=== PATIENT | male | born 1950 ===

== ENCOUNTER 2017-10-17 16:21 | Inpatient (IN) | payer OTHER, MEDICARE ==
[2017-10-17 16:21] VITALS: BMI 25.0
[~2017-10-17 16:21] MED LIST: Gadodiamide 287 mg/ml 20 ml IV ONE
--- NOTE | 2017-10-17 16:43 | C.PDOC ---
History Of Present Illness 66 y/o male presents to ED for complaints of worsening right hand infection that began 3 days ago. Patient states he was seen on 10/16 for same symptoms and was treated with 2 doses of Bactrim. Patient reports increasing redness and swelling of right hand prompted the ED visit. Denies fever or any other physical complaints. WORSENING R HAND INFXN X 3 DAYS. SEEN 10/16 FOR SAME SP BACTRIM X 2 DOSES. PS INCR REDNESS AND SWELLING. NO FEVER. EXAM MILD DIST NONTOXIC SKIN +CELLULITIS DORSAL R HAND ENTIRE TO WRIST; INTACT NONFLUCTUANT EXT R HAND SWELLING R DORSAL HAND, NONPITTING ATRAUM REMAINDER NEG Time Seen by Provider: 10/17/17 16:33 Chief Complaint (Nursing): Finger,Hand,&Wrist History Per: Patient History/Exam Limitations: no limitations Onset/Duration Of Symptoms: Days (3) Current Symptoms Are (Timing): Still Present Location Of Injury: Right: Hand Quality Of Symptoms: Swollen Recent travel outside of the [place]: No Past Medical History Reviewed: Historical Data, Nursing Documentation, Vital Signs Vital Signs: Last Vital Signs Temp 99.2 F 10/17/17 16:24 Pulse 80 10/17/17 16:24 Resp 20 10/17/17 16:24 BP 136/83 10/17/17 16:24 Pulse Ox 99 10/17/17 17:58 - Medical History PMH: Arthritis, Asthma, Colonic Polyps, Diabetes, HTN, Hypercholesterolemia Denies: Chronic Kidney Disease Surgical History: Endoscopy - [facility] Procedures ENDO EXCISION/DEST OF LESION OR TISSUE OF STOMACH (09/22/13) ENDO RECTUM POLYPECTOMY (08/14/13) ESOPHAGOGASTRODUODENOSCOPY [EGD] W/CLOSED BIOPSY (09/22/13) PHYSICAL THERAPY NEC (08/04/13) Family History: States: Unknown Family Hx - Social History Hx Tobacco Use: No Hx Alcohol Use: No Hx Substance Use: No - Immunization History Hx Tetanus Toxoid Vaccination: No Hx Influenza Vaccination: Yes Hx Pneumococcal Vaccination: No Review Of Systems Except As Marked, All Systems Reviewed And Found Negative. Skin: Positive for: Other (Redness and swelling of right hand (infection) ) Physical Exam - Physical Exam Appears: Non-toxic, In Acute Distress (Mild) Skin: Other (Positive cellulitis of dorsal of entire right hand extending to wrist, otherwise skin is intact and nonfluctuant. ) Head: Atraumatic, Normacephalic Eye(s): bilateral: Normal Inspection Chest: Symmetrical Cardiovascular: Rhythm Regular, Murmur Respiratory: Normal Breath Sounds, No Rales, No Rhonchi, No Wheezing, Other ( NARD) Extremity: Swelling (Right dorsal hand, nonpitting, atraumatic) Extremity: Bilateral: Atraumatic, Normal ROM Neurological/Psych: Oriented x3, Normal Speech ED Course And Treatment - Laboratory Results Result Diagrams: 10/17/17 17:06 10/17/17 17:06 ECG: Interpreted By Me ECG Rhythm: Sinus Tachycardia Rate From EC O2 Sat by Pulse Oximetry: 99 (RA) Pulse Ox Interpretation: Normal - Radiology CXR: Interpreted by Me CXR Interpretation: Yes: No Acute Disease - Other Rad R HAND X-Ray: Interpreted by Me (NEG) Progress - Re-Evaluation Re-evaluation Note: 10/17/17 16:41 d/w dr kenny will admit - Data Reviewed Data Reviewed: Lab, Diagnostic imaging, EKG, Old records Medical Decision Making Medical Decision Making: Plan: * IV fluids * Toradol * Vancomycin. * EKG * CXR * Blood culture Disposition Counseled Patient/Family Regarding: Studies Performed, Diagnosis - Disposition Disposition: HOSPITALIZED Disposition Time: 16:43 Condition: STABLE Forms: [facility] (Telugu) - POA Present On Arrival: Poor Glycemic Control - Clinical Impression Clinical Impression: Cellulitis of hand - Scribe Statement The provider has reviewed the documentation as recorded by the Scribe Geraldo Hightower All medical record entries made by the Scribe were at my direction and personally dictated by me. I have reviewed the chart and agree that the record accurately reflects my personal performance of the history, physical exam, medical decision making, and the department course for this patient. I have also personally directed, reviewed, and agree with the discharge instructions and disposition. Decision To Admit - Pt Status Changed To: Hospital Disposition Of: Observation - . Bed Request Type: Regular Admitting Physician: Moiz Kenny Patient Diagnosis: Cellulitis of hand
[2017-10-17] MEDS ORDERED: Vancomycin 1 GM 1 GM/250 ML BAG IV SCH (16:45)
[2017-10-17] MEDS: Sodium Chloride 0.9% 1,000 ML IV SCH ×2 (16:45→19:40)
[2017-10-17] MEDS ORDERED: Sodium Chloride 0.9% 1,000 ML ONE (16:51)
[2017-10-17 17:16] LABS: NEUT # 17.7 K/uL (1.8-7.0)
[2017-10-17 17:29] LABS: ALB/GLOB RATIO 1.2 (1.0-2.1); ALBUMIN 4.5 g/dL (3.5-5.0); ALT/SGPT 27 U/L (21-72); AST/SGOT 15 U/L (17-59); BASO # 0.1 K/uL (0.0-0.2); BASO % 0.4 % (0.0-2.0); BLOOD UREA NITROGEN 8 mg/dL (9-20); CALCIUM 9.5 mg/dl (8.6-10.4); GFR NON-AFRICAN AMERICAN > 60; HEMOGLOBIN 14.4 g/dL (12.0-18.0); LYMPH # 2.2 K/uL (1.0-4.3); LYMPH % 9.9 % (20.0-40.0); MEAN CELL VOLUME 90.5 fL (80.0-94.0); MEAN CORPUSCULAR HEMOGLOBIN 31.3 pg (27.0-31.0); MEAN CORPUSCULAR HGB CONC 34.6 g/dL (33.0-37.0); MEAN PLATELET VOLUME 7.1 fL (7.2-11.7); MONO # 2.4 K/uL (0.0-0.8); MONO % 10.5 % (0.0-10.0); NEUT % 79.2 % (50.0-75.0); NRBC % 0.1 % (0.0-2.0); PLATELET COUNT 287 K/uL (130-400); RBC 4.59 Mil/uL (4.40-5.90); RED CELL DISTRIBUTION WIDTH 13.2 % (11.5-14.5); WHITE BLOOD COUNT 22.4 K/uL (4.8-10.8)
--- NOTE | 2017-10-17 17:41 | RAD ---
Chest x-ray two views History: Medical clearance. Comparison: 05/11/2015 Findings: Mild venous congestion. Right hilar prominence. Heart size within normal limits. Degenerative changes in the spine. Prominent anterior osteophytosis. Impression: Mild venous congestion. Right hilar prominence.
[2017-10-17] MEDS ORDERED: Vancomycin 1 GM 1 GM/250 ML BAG IVPB ONE (18:17)
[2017-10-17 18:25] LABS: LYMPHOCYTE 11 % (20-40); MONOCYTE 3 % (0-10); NEUTROPHIL 86 % (50-75); PLATELET ESTIMATE NORMAL (NORMAL); TOTAL CELLS COUNTED 100
--- NOTE | 2017-10-17 18:54 | CP.PCM.HP ---
History of Present Illness - History of Present Illness History of Present Illness: CC: Right upper eczematous swelling and pain HPI: 66-year-old male with a history of diabetes hypertension and hypercholesteremia bronchial asthma severe lumbosacral disc disease also with the pain. Patient came to the emergency room on Wednesday with the sudden onset of right upper extremity swelling, at the time patient was seen by ER attending, sent home with the Bactrim for possible suspected localized to cellulitis of the right upper immitis. But patient condition got worse, he started having increasing pain, increasing swelling involving the right upper extremities especially in the hand, extending to the forearm, associate with the right axillary pain. Patient did not have any injury He did not have any recent work which increases the risk of superficial skin infection, no bite, no injections recently. But spontaneously patient started swelling in the right little finger in the beginning, especially in the base of the little finger, gradually got worse associated with the swelling and pain. In the emergency room now patient is having high-grade fever. Chills noted. Shaking present, tachycardia noted. Past medical history: Diabetes hypertension and hypercholesteremia. Lumbosacral pain. Of bronchial asthma Allergies no known drug allergy Personal history: Nonsmoker nonalcoholic. Diffuse with his . No drug abuse. Family history significant for cancer noted high blood pressure and diabetes Review of system: No headache or visual symptom. Denies any chest pain. Right upper extubate the pain, extending to the arm, starting from the right forearm. No nausea no vomiting no GI symptoms, no rash noted On examination: Vital signs noted elevated temperature noted. Chest good air entry bilaterally regular heart sound nontender abdomen. Right upper extremity dorsum of the hand swelling noted, also tenderness in the base of the little finger, also metatarsal area noted. There is a slight scab noted in the dorsum of the right little finger. No proximal adenitis noted. Promptness, tenderness, swelling, redness present up to the mid forearm. Patient's labs reviewed Elevated WBC noted. Neutrophil noted. X-ray of the hand nonspecific Patient received Ancef, vancomycin in the emergency room. Assessment: 63-year-old male with a history of diabetes hypertension hypercholesterolemia chronic lumbosacral pain. Now patient has acute cellulitis involving the right upper extremity involving the hand. Underlying abscess in the hand cannot be ruled out, suggested to high MRI with contrast. Meanwhile will continue the patient on vancomycin. Clindamycin Zosyn. Her get MRI, patient may need evaluation for surgery if it is an abscess. DVT GI prophylaxis. Glucose control and will follow-up the patient Present on Admission - Present on Admission Any Indicators Present on Admission: No History of DVT/PE: No History of Uncontrolled Diabetes: No Urinary Catheter: No Decubitus Ulcer Present: No Past Patient History - Infectious Disease Hx of Infectious Diseases: None - Past Medical History & Family History Past Medical History?: Yes - Past Social History Smoking Status: Never Smoked - CARDIAC Hx Hypercholesterolemia: Yes Hx Hypertension: Yes - PULMONARY Hx Asthma: Yes - NEUROLOGICAL Hx Neurological Disorder: No - HEENT Hx HEENT Problems: No - RENAL Hx Chronic Kidney Disease: No - ENDOCRINE/METABOLIC Hx Endocrine Disorders: Yes Hx Diabetes Mellitus Type 2: Yes - HEMATOLOGICAL/ONCOLOGICAL Hx Blood Disorders: No - INTEGUMENTARY Hx Dermatological Problems: No - MUSCULOSKELETAL/RHEUMATOLOGICAL Hx Arthritis: Yes - GASTROINTESTINAL Hx Gastrointestinal Disorders: Yes Hx Gastroesophageal Reflux: Yes - GENITOURINARY/GYNECOLOGICAL Hx Genitourinary Disorders: No - PSYCHIATRIC Hx Substance Use: No - SURGICAL HISTORY Hx Surgeries: Yes Hx Orthopedic Surgery: Yes (BILATERAL TOES SURGERY) - ANESTHESIA Hx Anesthesia: Yes Hx Anesthesia Reactions: No Hx Malignant Hyperthermia: No Meds Allergies/Adverse Reactions: Allergies Allergy/AdvReac Type Severity Reaction Status Date / Time No Known Allergies Allergy Verified 10/17/17 16:26 Results - Vital Signs Recent Vital Signs: Last Vital Signs Temp 102.3 F H 10/17/17 18:20 Pulse 105 H 10/17/17 18:20 Resp 19 10/17/17 18:20 BP 108/69 10/17/17 18:20 Pulse Ox 97 10/17/17 18:20 - Labs Result Diagrams: 10/17/17 17:06 10/17/17 17:06 Labs: Laboratory Results - last 24 hr 10/17/17 10/17/17 17:06 17:06 WBC 22.4 H D RBC 4.59 Hgb 14.4 Hct 41.6 MCV 90.5 MCH 31.3 H MCHC 34.6 RDW 13.2 Plt Count 287 MPV 7.1 L Neut % (Auto) 79.2 H Lymph % (Auto) 9.9 L [place] % (Auto) 10.5 H Eos % (Auto) 0.0 Baso % (Auto) 0.4 Neut # (Auto) 17.7 H Lymph # (Auto) 2.2 [place] # (Auto) 2.4 H Eos # (Auto) 0.0 Baso # (Auto) 0.1 Neutrophils % (Manual) 86 H Lymphocytes % (Manual) 11 L Monocytes % (Manual) 3 Platelet Estimate Normal Sodium 139 Potassium 4.0 Chloride 100 Carbon Dioxide 24 Anion Gap 19 BUN 8 L Creatinine 1.0 Est GFR ( Amer) > 60 Est GFR (Non-Af Amer) > 60 Random Glucose 144 H Calcium 9.5 Total Bilirubin 2.7 H AST 15 L D ALT 27 Alkaline Phosphatase 59 Total Protein 8.1 Albumin 4.5 Globulin 3.6 Albumin/Globulin Ratio 1.2
[2017-10-17] MEDS ORDERED: Glucagon Recombinant 1 mg Inj IM PRN (19:00)
[2017-10-17] MEDS ORDERED: Dextrose 50% SYRINGE Inj (50 ml) IV PRN (19:00)
[2017-10-17] MEDS: Piperacill/Tazo 3.375gm in Dex 3.375 GM/50 ML BAG IVPB SCH (20:10)
[2017-10-17] MEDS: Clindamycin 300 MG in Sodium Chloride 0.9% 50 ML IVPB SCH (21:08)
[2017-10-17] MEDS: (Novolin R) Insulin Human Regular 100 units/ml vial SC SCH (22:15)
[2017-10-18 00:14] LABS: URINE BACTERIA RARE (<OCC); URINE BILIRUBIN NEGATIVE (NEGATIVE); URINE BLOOD NEGATIVE (NEGATIVE); URINE CLARITY Clear (Clear); URINE COLOR Yellow (YELLOW); URINE GLUCOSE (UA) 1+ mg/dL (Normal); URINE LEUKOCYTE ESTERASE NEG Leu/uL (Negative); URINE PROTEIN NEGATIVE (NEGATIVE); URINE UROBILINOGEN NORMAL mg/dL (0.2-1.0)
[2017-10-18] MEDS: Clindamycin 300 MG in Sodium Chloride 0.9% 50 ML IVPB SCH ×4 (01:04→20:37)
[2017-10-18] MEDS: Piperacill/Tazo 3.375gm in Dex 3.375 GM/50 ML BAG IVPB SCH ×4 (02:04→22:22)
[2017-10-18] MEDS: Sodium Chloride 0.9% 1,000 ML IV SCH ×3 (02:05→14:13)
[2017-10-18 07:21] LABS: BASO % 0.2 % (0.0-2.0); EOS % 0.1 % (0.0-4.0); LYMPH # 1.8 K/uL (1.0-4.3); LYMPH % 9.6 % (20.0-40.0); MEAN CELL VOLUME 89.7 fL (80.0-94.0); MEAN CORPUSCULAR HEMOGLOBIN 31.5 pg (27.0-31.0); MEAN CORPUSCULAR HGB CONC 35.1 g/dL (33.0-37.0); MEAN PLATELET VOLUME 7.6 fL (7.2-11.7); MONO # 1.5 K/uL (0.0-0.8); NEUT # 15.6 K/uL (1.8-7.0); NEUT % 82.1 % (50.0-75.0); PLATELET COUNT 290 K/uL (130-400); RBC 4.13 Mil/uL (4.40-5.90); RED CELL DISTRIBUTION WIDTH 13.1 % (11.5-14.5)
[2017-10-18 08:05] LABS: ALB/GLOB RATIO 1.3 (1.0-2.1); ALT/SGPT 30 U/L (21-72); AST/SGOT 17 U/L (17-59); BLOOD UREA NITROGEN 9 mg/dL (9-20); CALCIUM 8.8 mg/dl (8.6-10.4); GFR NON-AFRICAN AMERICAN > 60
[2017-10-18] MEDS: (Novolin R) Insulin Human Regular 100 units/ml vial SC SCH ×4 (08:21→22:31)
[2017-10-18 09:09] LABS: BANDS 3 % (0-2); LYMPHOCYTE 8 % (20-40); MONOCYTE 9 % (0-10); NEUTROPHIL 80 % (50-75); PLATELET ESTIMATE NORMAL (NORMAL); TOTAL CELLS COUNTED 100
[2017-10-18 09:10] LABS: ANISOCYTOSIS SLIGHT; POLYCHROMIC SLIGHT; TOXIC GRANULATION PRESENT
[2017-10-18 09:11] LABS: LARGE PLATELETS PRESENT
[2017-10-18] MEDS ORDERED: Potassium Phosphate 15 MMOLE in Dextrose 5% In Water 250 ML IVPB ONE (10:00)
--- NOTE | 2017-10-18 10:21 | RAD ---
PROCEDURE: Right Hand Radiographs. HISTORY: CELLULITIS COMPARISON: None. FINDINGS: BONES: Bone alignment and mineralization are normal. There is no acute displaced fracture or bone destruction. JOINTS: Normal. No osteoarthritic changes. SOFT TISSUES: There is diffuse soft tissue swelling in the hand. OTHER FINDINGS: None. IMPRESSION: No acute fracture or radiographic evidence for acute osteomyelitis. Diffuse soft tissue swelling in the hand may represent acute cellulitis in the appropriate clinical setting. No evidence for soft tissue emphysema.
--- NOTE | 2017-10-18 11:58 | MRI ---
MRI right hand History: Cellulitis. Comparison: None available. Technique: Multi-echo multiplanar sequences were performed through the right hand without the use of intravenous contrast. Impression: Diffuse reticulation and edema consistent with a cellulitis seen within the dorsal subcutaneous soft tissues overlying the right hand at the level of the metacarpal bones. At that level, there is an enhancing collection measuring 5.1 x 4.2 x .9 centimeters suggestive for an abscess/phlegmon collection. This collection extends to and abuts the 2nd through 5th extensor tendon sheaths. Contiguous adjacent collection extending more distally at the level of the 5th proximal phalanx measures up to 2.5 x 1.5 centimeters. Visualized flexor tendons are preserved. No gross signal abnormality within the visualized osseous structures to suggest an acute osteomyelitis. Degenerative changes at the 1st carpometacarpal joint space. Impression: Diffuse reticulation and edema consistent with a cellulitis seen within the dorsal subcutaneous soft tissues overlying the right hand at the level of the metacarpal bones. At that level, there is an enhancing collection measuring 5.1 x 4.2 x .9 centimeters suggestive for an abscess/phlegmon collection. This collection extends to and abuts the 2nd through 5th extensor tendon sheaths. Contiguous adjacent collection extending more distally at the level of the 5th proximal phalanx measures up to 2.5 x 1.5 centimeters.
[2017-10-18 17:29] LABS: N MENINGITIS ACY/W135 NEGATIVE (NEGATIVE); N MENINGITIS B/ECOLI K1 NEGATIVE (NEGATIVE); STREP PNEUMONIAE NEGATIVE (NEGATIVE); STREPTOCOCCUS B NEGATIVE (NEGATIVE)
[2017-10-18] MEDS: Vancomycin 1 gm/NS 200 ml 1 GM/200 ML BAG IVPB SCH (20:37)
[2017-10-18 21:09] LABS: N MENINGITIS ACY/W135 NEGATIVE (NEGATIVE); N MENINGITIS B/ECOLI K1 NEGATIVE (NEGATIVE); STREP PNEUMONIAE NEGATIVE (NEGATIVE); STREPTOCOCCUS B NEGATIVE (NEGATIVE)
[2017-10-19] MEDS: Clindamycin 300 MG in Sodium Chloride 0.9% 50 ML IVPB SCH ×4 (01:42→20:00)
[2017-10-19] MEDS: Sodium Chloride 0.9% 1,000 ML IV SCH ×2 (01:43→13:49)
[2017-10-19] MEDS: Piperacill/Tazo 3.375gm in Dex 3.375 GM/50 ML BAG IVPB SCH ×4 (03:09→21:58)
[2017-10-19] MEDS: Vancomycin 1 gm/NS 200 ml 1 GM/200 ML BAG IVPB SCH ×2 (05:05→18:01)
--- NOTE | 2017-10-19 07:28 | CP.PCM.CON ---
History of Present Illness - History of Present Illness History of Present Illness: Orthopedic Consultation: Dr. Alex Franco Patient is a 66 y/o RHD male with PMH of NIDDM, HTN, hypercholesterolemia, asthma and chronic back pain who c/o R hand pain. The pain started on 10/15/17 at the dorsum of his right fifth digit and progressed to the dorsum of his hand. The patient presented to [facility] ER on 10/16/17 and was discharged with antibiotics. He returned to the ER the next day with severe worsening symptoms of pain and swelling. The pain worsens with any movement of the hand and fingers and alleviates with rest. The pain radiates up his forearm. He also admits to experiencing fever and chills yesterday. He denies any numbness or tingling. He denies CP/SOB/N/V/D/melena/dysuria. Review of Systems - Review of Systems All systems: reviewed and no additional remarkable complaints except Review of Systems: as per HPI Past Patient History - Infectious Disease Hx of Infectious Diseases: None - Past Medical History & Family History Past Medical History?: Yes Past Family History: Reviewed and not pertinent - Past Social History Smoking Status: Never Smoked Alcohol: None Drugs: Denies - CARDIAC Hx Hypercholesterolemia: Yes Hx Hypertension: Yes - PULMONARY Hx Asthma: Yes - NEUROLOGICAL Hx Neurological Disorder: No - HEENT Hx HEENT Problems: No - RENAL Hx Chronic Kidney Disease: No - ENDOCRINE/METABOLIC Hx Endocrine Disorders: Yes Hx Diabetes Mellitus Type 2: Yes - HEMATOLOGICAL/ONCOLOGICAL Hx Blood Disorders: No - INTEGUMENTARY Hx Dermatological Problems: No - MUSCULOSKELETAL/RHEUMATOLOGICAL Hx Arthritis: Yes - GASTROINTESTINAL Hx Gastrointestinal Disorders: Yes Hx Gastroesophageal Reflux: Yes - GENITOURINARY/GYNECOLOGICAL Hx Genitourinary Disorders: No - PSYCHIATRIC Hx Substance Use: No - SURGICAL HISTORY Hx Surgeries: Yes Hx Orthopedic Surgery: Yes (BILATERAL TOES SURGERY) - ANESTHESIA Hx Anesthesia: Yes Hx Anesthesia Reactions: No Hx Malignant Hyperthermia: No Meds Allergies/Adverse Reactions: Allergies Allergy/AdvReac Type Severity Reaction Status Date / Time No Known Allergies Allergy Verified 10/17/17 16:26 - Medications Medications: Current Medications Acetaminophen (Tylenol 325mg Tab) 650 mg PO Q6 PRN PRN Reason: Fever >100.4 F Last Admin: 10/18/17 08:38 Dose: 650 mg Dextrose (Dextrose 50% Inj) 0 ml IV STAT PRN; Protocol PRN Reason: Hypoglycemia Protocol Dextrose (Glutose 15) 0 gm PO ONCE PRN; Protocol PRN Reason: Hypoglycemia Protocol Glucagon (Glucagen Diagnostic Kit) 0 mg IM STAT PRN; Protocol PRN Reason: Hypoglycemia Protocol Heparin Sodium (Porcine) (Heparin) 5,000 units SC Q12 [facility] Last Admin: 10/18/17 22:22 Dose: 5,000 units Clindamycin Phosphate 300 mg/ (Sodium Chloride) 52 mls @ 100 mls/hr IVPB Q6H [place] PRN Reason: Protocol Last Admin: 10/19/17 01:42 Dose: 100 mls/hr Dextrose (Dextrose 5% In Water 1000 Ml) 1,000 mls @ 0 mls/hr IV .Q0M PRN; Protocol; Per Protocol PRN Reason: Hypoglycemia Protocol Piperacillin Sod/Tazobactam Sod (Zosyn 3.375 Gm Iv Premix) 3.375 gm in 50 mls @ 100 mls/hr IVPB Q6H [place] PRN Reason: Protocol Last Admin: 10/19/17 03:09 Dose: 100 mls/hr Sodium Chloride (Sodium Chloride 0.9%) 1,000 mls @ 100 mls/hr IV .Q10H [facility] Last Admin: 10/19/17 01:43 Dose: 100 mls/hr Vancomycin/Sodium Chloride (Vancomycin 1 Gm/Ns 200 Ml) 1 gm in 200 mls @ 133.333 mls/hr IVPB Q12H [facility] PRN Reason: Protocol Stop: 10/23/17 10:01 Last Admin: 10/19/17 05:05 Dose: 133.333 mls/hr Insulin Human Regular (Novolin R) 0 unit SC ACHS [facility] PRN Reason: Protocol Last Admin: 10/18/17 22:31 Dose: Not Given Montelukast Sodium (Singulair) 10 mg PO DAILY [facility] Last Admin: 10/18/17 11:04 Dose: 10 mg Pneumococcal Polyvalent Vaccine (Pneumovax 23 Vaccine) 0.5 ml IM .ONCE ONE Stop: 10/19/17 14:32 Pregabalin (Lyrica) 150 mg PO DAILY [facility] Last Admin: 10/18/17 11:04 Dose: 150 mg Rosuvastatin Calcium (Crestor) 10 mg PO HS [facility] Last Admin: 10/18/17 22:22 Dose: 10 mg Physical Exam - Constitutional Appears: Well, No Acute Distress - Head Exam Head Exam: ATRAUMATIC, NORMOCEPHALIC - ENT Exam ENT Exam: Mucous Membranes Moist - Respiratory Exam Respiratory Exam: Clear to Auscultation Bilateral, NORMAL BREATHING PATTERN - Cardiovascular Exam Cardiovascular Exam: +S1, +S2 - Extremities Exam Additional comments: R hand: marked tenderness dorsum of hand and fifth digit with guarding fluctuant mass at dorsum, + warmth and erythema small punctate healed wound at the dorsum of proximal phalynx of 5th digit severe pain with ROM of fingers sensation intact MN/UN/RN motor intact MN/UN/RN radial pulse intact - Neurological Exam Neurological exam: Alert, Oriented x3 - Psychiatric Exam Psychiatric exam: Normal Affect, Normal Mood - Skin Skin Exam: Normal Color, Warm Results - Vital Signs Recent Vital Signs: Last Vital Signs Temp 100 F H 10/18/17 23:22 Pulse 88 10/18/17 23:22 Resp 20 10/18/17 23:22 BP 105/74 10/18/17 23:22 Pulse Ox 97 10/18/17 23:22 - Labs Result Diagrams: 10/19/17 08:34 10/19/17 08:34 Labs: Laboratory Results - last 24 hr 10/17/17 10/18/17 10/18/17 19:00 06:30 06:52 Neutrophils % (Manual) 80 H Band Neutrophils % 3 H Lymphocytes % (Manual) 8 L Monocytes % (Manual) 9 Toxic Granulation Present Platelet Estimate Normal Large Platelets Present Polychromasia Slight Anisocytosis (manual) Slight Sodium Potassium Chloride Carbon Dioxide Anion Gap BUN Creatinine Est GFR ( Amer) Est GFR (Non-Af Amer) POC Glucose (mg/dL) Random Glucose Calcium Phosphorus Magnesium Total Bilirubin AST ALT Alkaline Phosphatase Total Protein Albumin Globulin Albumin/Globulin Ratio H.influenzae Type B Ag Negative Negative N.meningitidis ACY/W135 Negative Negative N.meningi B/E.coli K1 Ag Negative Negative Group B Strep Antigen Negative Negative S. pneumoniae Antigen Negative Negative 10/18/17 10/18/17 10/18/17 06:52 07:41 11:05 Neutrophils % (Manual) Band Neutrophils % Lymphocytes % (Manual) Monocytes % (Manual) Toxic Granulation Platelet Estimate Large Platelets Polychromasia Anisocytosis (manual) Sodium 139 Potassium 4.1 Chloride 107 Carbon Dioxide 22 Anion Gap 14 BUN 9 Creatinine 1.0 Est GFR ( Amer) > 60 Est GFR (Non-Af Amer) > 60 POC Glucose (mg/dL) 200 H 166 H Random Glucose 165 H Calcium 8.8 Phosphorus 1.0 L* Magnesium 2.2 Total Bilirubin 2.7 H AST 17 ALT 30 Alkaline Phosphatase 59 Total Protein 7.1 Albumin 4.0 Globulin 3.1 Albumin/Globulin Ratio 1.3 H.influenzae Type B Ag N.meningitidis ACY/W135 N.meningi B/E.coli K1 Ag Group B Strep Antigen S. pneumoniae Antigen 10/18/17 10/18/17 16:32 22:27 Neutrophils % (Manual) Band Neutrophils % Lymphocytes % (Manual) Monocytes % (Manual) Toxic Granulation Platelet Estimate Large Platelets Polychromasia Anisocytosis (manual) Sodium Potassium Chloride Carbon Dioxide Anion Gap BUN Creatinine Est GFR ( Amer) Est GFR (Non-Af Amer) POC Glucose (mg/dL) 179 H 192 H Random Glucose Calcium Phosphorus Magnesium Total Bilirubin AST ALT Alkaline Phosphatase Total Protein Albumin Globulin Albumin/Globulin Ratio H.influenzae Type B Ag N.meningitidis ACY/W135 N.meningi B/E.coli K1 Ag Group B Strep Antigen S. pneumoniae Antigen Assessment & Plan (1) Abscess of right hand Assessment and Plan: -Dr. Franco recommends OR today for R hand irrigation and debridement -Risks/benefits/alternatives of procedure were explained to patient who expresses understanding and agrees to proceed. -NPO -abx as per ID -above d/w Dr. Franco in agreement Status: Acute Radiology Interpretation - Belly Dancer Belly Dancer:: Radiologist - Study type Study type:: MRI - Body Region Body Region:: Upper extremeties - Notes: Notes:: Accession No. : [id number] Patient Name / ID : BHIMLITA ROJAS / [id number] Exam Date : 10/18/2017 09:34:46 ( Approved ) Study Comment : Sex / Age : M / [id number] Creator : Vida Esqueda Dictator : Vince Newman MD Station Superintendent : Jewelry Drill Operator : Vince Newman MD Approver2 : Report Date : 10/18/2017 10:46:59 My Comment : MRI right hand History: Cellulitis. Comparison: None available. Technique: Multi-echo multiplanar sequences were performed through the right hand without the use of intravenous contrast. Impression: Diffuse reticulation and edema consistent with a cellulitis seen within the dorsal subcutaneous soft tissues overlying the right hand at the level of the metacarpal bones. At that level, there is an enhancing collection measuring 5.1 x 4.2 x .9 centimeters suggestive for an abscess/phlegmon collection. This collection extends to and abuts the 2nd through 5th extensor tendon sheaths. Contiguous adjacent collection extending more distally at the level of the 5th proximal phalanx measures up to 2.5 x 1.5 centimeters. Visualized flexor tendons are preserved. No gross signal abnormality within the visualized osseous structures to suggest an acute osteomyelitis. Degenerative changes at the 1st carpometacarpal joint space. Impression: Diffuse reticulation and edema consistent with a cellulitis seen within the dorsal subcutaneous soft tissues overlying the right hand at the level of the metacarpal bones. At that level, there is an enhancing collection measuring 5.1 x 4.2 x .9 centimeters suggestive for an abscess/phlegmon collection. This collection extends to and abuts the 2nd through 5th extensor tendon sheaths. Contiguous adjacent collection extending more distally at the level of the 5th proximal phalanx measures up to 2.5 x 1.5 centimeters.
[2017-10-19] MEDS: (Novolin R) Insulin Human Regular 100 units/ml vial SC SCH ×4 (08:18→22:01)
[2017-10-19 08:48] LABS: BASO # 0.1 K/uL (0.0-0.2); BASO % 0.4 % (0.0-2.0); EOS # 0.1 K/uL (0.0-0.7); EOS % 0.5 % (0.0-4.0); HEMOGLOBIN 12.4 g/dL (12.0-18.0); LYMPH # 2.8 K/uL (1.0-4.3); LYMPH % 19.2 % (20.0-40.0); MEAN CELL VOLUME 90.1 fL (80.0-94.0); MEAN CORPUSCULAR HEMOGLOBIN 30.9 pg (27.0-31.0); MEAN CORPUSCULAR HGB CONC 34.2 g/dL (33.0-37.0); MEAN PLATELET VOLUME 7.3 fL (7.2-11.7); MONO # 1.4 K/uL (0.0-0.8); MONO % 9.9 % (0.0-10.0); NEUT # 10.3 K/uL (1.8-7.0); NRBC % 0.1 % (0.0-2.0); RBC 4.03 Mil/uL (4.40-5.90); RED CELL DISTRIBUTION WIDTH 13.1 % (11.5-14.5); WHITE BLOOD COUNT 14.6 K/uL (4.8-10.8)
[2017-10-19 08:53] LABS: ALB/GLOB RATIO 1.3 (1.0-2.1); ALBUMIN 3.8 g/dL (3.5-5.0); ALT/SGPT 41 U/L (21-72); AST/SGOT 34 U/L (17-59); BLOOD UREA NITROGEN 6 mg/dL (9-20); CALCIUM 8.6 mg/dl (8.6-10.4); GFR NON-AFRICAN AMERICAN > 60
[2017-10-19] MEDS ORDERED: Bacitracin 50,000 UNIT in Sodium Chloride 0.9% Irrig 1,000 ML IR SCH (10:45)
[2017-10-19] MEDS ORDERED: Midazolam 2 MG/2 ML VIAL ONE (11:00)
[2017-10-19] MEDS ORDERED: Propofol 10 mg/ml Inj (20 ML) ONE (11:00)
[2017-10-19] MEDS ORDERED: HYDROmorphone 0.5 mg/0.5 ml ISec IVP PRN (11:42)
[2017-10-19] MEDS ORDERED: Morphine 4 MG/ML VIAL ONE (11:45)
--- NOTE | 2017-10-19 12:05 | CP.PCM.CON ---
History of Present Illness - History of Present Illness History of Present Illness: events noted sent to OR for I and D right hand await OR cultures cont same rx Yohannes Carrington 66-year-old male with a history of diabetes hypertension and hypercholesteremia bronchial asthma severe lumbosacral disc disease also with the pain. Patient came to the emergency room on Wednesday with the sudden onset of right upper extremity swelling, at the time patient was seen by ER attending, sent home with the Bactrim for possible suspected localized to cellulitis of the right upper immitis. But patient condition got worse, he started having increasing pain, increasing swelling involving the right upper extremities especially in the hand, extending to the forearm, associate with the right axillary pain. Patient did not have any injury Review of Systems - Constitutional Constitutional: As Per HPI - EENT Eyes: absent: As Per HPI, Blind Spots, Blurred Vision, Change in Vision, Decreased Night Vision, Diplopia, Discharge, Dry Eye, Exophthalmos, Floaters, Irritation, Itchy Eyes, Loss of Peripheral Vision, Pain, Photophobia, Requires Corrective Lenses, Sees Flashes, Spots in Vision, Tunnel Vision, Other Visual Disturbances, Loss of Vision, Other Ears: absent: As Per HPI, Decreased Hearing, Ear Discharge, Ear Pain, Tinnitus, Abnormal Hearing, Disequilibrium, Dizziness, Other Nose/Mouth/Throat: absent: As Per HPI, Epistaxis, Nasal Congestion, Nasal Discharge, Nasal Obstruction, Nasal Trauma, Nose Pain, Post Nasal Drip, Sinus Pain, Sinus Pressure, Bleeding Gums, Change in Voice, Dental Pain, Dry Mouth, Dysphagia, Halitosis, Hoarsness, Lip Swelling, Mouth Lesions, Mouth Pain, Odynophagia, Sore Throat, Throat Swelling, Tongue Swelling, Facial Pain, Neck Pain, Neck Mass, Other - Cardiovascular Cardiovascular: absent: As Per HPI, Acrocyanosis, Chest Pain, Chest Pain at Rest , Chest Pain with Activity, Claudication, Diaphoresis, Dyspnea, Dyspnea on Exertion, Edema, Irregular Heart Rhythm, Pain Radiating to Arm/Neck/Jaw, Leg Edema, Leg Ulcers, Lightheadedness, Orthopnea, Palpitations, Paroxysmal Nocturnal Dyspnea, Pedal Edema, Radiating Pain, Rapid Heart Rate, Slow Heart Rate, Syncope, Other - Respiratory Respiratory: absent: As Per HPI, Cough, Dyspnea, Hemoptysis, Dyspnea on Exertion , Wheezing, Snoring, Stridor, Pain on Inspiration, Chest Congestion, Excessive Mucous Production, Change in Mucous Color, Pain with Coughing, Other - Gastrointestinal Gastrointestinal: absent: As Per HPI, Abdominal Pain, Belching, Bloating, Change in Bowel Habits, Change in Stool Character, Coffee Ground Emesis, Constipation, Cramping, Diarrhea, Dyspepsia, Dysphagia, Early Satiety, Excessive Flatus, Fecal Incontinence, Heartburn, Hematemesis, Hematochezia, Loose Stools, Melena, Nausea, Odynophagia, Temesmus, Vomiting, Other - Genitourinary Genitourinary: absent: As Per HPI, Change in Urinary Stream, Difficulty Urinating, Dysuria, Flank Pain, Hematuria, Pyuria, Nocturia, Urinary Incontinence, Urinary Frequency, Urinary Hesitance, Urinary Urgency, Voiding Freq/Small Amts, Freq UTI, Hx Renal/Bladder Calculi, Hx /Renal Surgery, Bladder Distension, Other - Musculoskeletal Musculoskeletal: absent: As Per HPI, Abnormal Gait, Arthralgias, Atrophy, Back Pain, Deformity, Joint Swelling, Limited Range of Motion, Loss of Height, Muscle Cramps, Muscle Weakness, Myalgias, Neck Pain, Numbness, Radiating Pain into Limb, Stiffness, Tingling, Other - Integumentary Integumentary: Skin Pain, Wounds - Neurological Neurological: absent: As Per HPI, Abnormal Gait, Abnormal Hearing, Abnormal Movements, Abnormal Speech, Behavioral Changes, Burning Sensations, Confusion, Convulsions, Disequilibrium, Dizziness, Numbness, Focal Weakness, Frequent Falls , Headaches, Lack of Coordination, Loss of Vision, Memory Loss, Paresthesias, Radicular Pain, Restless Legs, Sensory Deficit, Syncope, Tingling, Tremor, Vertigo, Weakness, Other Visual Disturbances, Other - Psychiatric Psychiatric: absent: As Per HPI, Abnormal Sleep Pattern, Anhedonia, Anxiety, Auditory Hallucinations, Behavioral Changes, Change in Appetite, Change in Libido, Confusion, Depression, Difficulty Concentrating, Hallucinations, Homicidal Ideation, Hopelessness, Irritability, Memory Loss, Mood Swings, Panic Attacks, Paranoia, Suicidal Ideation, Visual Hallucinations, Tactile Hallucinations, Other - Endocrine Endocrine: absent: As Per HPI, Change in Body Appearance, Change in Libido, Cold Intolorance, Deepening of Voice, Excessive Sweating, Fatigue, Flushing, Heat Intolorance, Increase in Ring/Shoe/Hat Size, Palpitations, Polydipsia, Polyphagia, Polyuria, Other - Hematologic/Lymphatic Hematologic: absent: As Per HPI, Easy Bleeding, Easy Bruising, Lymphadenopathy, Other Past Patient History - Infectious Disease Hx of Infectious Diseases: None - Past Medical History & Family History Past Medical History?: Yes - Past Social History Smoking Status: Never Smoked - CARDIAC Hx Hypercholesterolemia: Yes Hx Hypertension: Yes - PULMONARY Hx Asthma: Yes - NEUROLOGICAL Hx Neurological Disorder: No - HEENT Hx HEENT Problems: No - RENAL Hx Chronic Kidney Disease: No - ENDOCRINE/METABOLIC Hx Endocrine Disorders: Yes Hx Diabetes Mellitus Type 2: Yes - HEMATOLOGICAL/ONCOLOGICAL Hx Blood Disorders: No - INTEGUMENTARY Hx Dermatological Problems: No - MUSCULOSKELETAL/RHEUMATOLOGICAL Hx Arthritis: Yes - GASTROINTESTINAL Hx Gastrointestinal Disorders: Yes Hx Gastroesophageal Reflux: Yes - GENITOURINARY/GYNECOLOGICAL Hx Genitourinary Disorders: No - PSYCHIATRIC Hx Substance Use: No - SURGICAL HISTORY Hx Surgeries: Yes Hx Orthopedic Surgery: Yes (BILATERAL TOES SURGERY) - ANESTHESIA Hx Anesthesia: Yes Hx Anesthesia Reactions: No Hx Malignant Hyperthermia: No Meds Allergies/Adverse Reactions: Allergies Allergy/AdvReac Type Severity Reaction Status Date / Time No Known Allergies Allergy Verified 10/17/17 16:26 - Medications Medications: Current Medications Acetaminophen (Tylenol 325mg Tab) 650 mg PO Q6 PRN PRN Reason: Fever >100.4 F Last Admin: 10/18/17 08:38 Dose: 650 mg Dextrose (Dextrose 50% Inj) 0 ml IV STAT PRN; Protocol PRN Reason: Hypoglycemia Protocol Dextrose (Glutose 15) 0 gm PO ONCE PRN; Protocol PRN Reason: Hypoglycemia Protocol Glucagon (Glucagen Diagnostic Kit) 0 mg IM STAT PRN; Protocol PRN Reason: Hypoglycemia Protocol Heparin Sodium (Porcine) (Heparin) 5,000 units SC Q12 [facility] Last Admin: 10/19/17 10:20 Dose: Not Given Hydromorphone HCl (Dilaudid) 0.5 mg IVP Q5M PRN PRN Reason: Pain, moderate (4-7) Stop: 10/19/17 13:43 Clindamycin Phosphate 300 mg/ (Sodium Chloride) 52 mls @ 100 mls/hr IVPB Q6H [facility] PRN Reason: Protocol Last Admin: 10/19/17 09:00 Dose: 100 mls/hr Dextrose (Dextrose 5% In Water 1000 Ml) 1,000 mls @ 0 mls/hr IV .Q0M PRN; Protocol; Per Protocol PRN Reason: Hypoglycemia Protocol Piperacillin Sod/Tazobactam Sod (Zosyn 3.375 Gm Iv Premix) 3.375 gm in 50 mls @ 100 mls/hr IVPB Q6H [facility] PRN Reason: Protocol Last Admin: 10/19/17 10:22 Dose: 100 mls/hr Sodium Chloride (Sodium Chloride 0.9%) 1,000 mls @ 100 mls/hr IV .Q10H [facility] Last Admin: 10/19/17 01:43 Dose: 100 mls/hr Vancomycin/Sodium Chloride (Vancomycin 1 Gm/Ns 200 Ml) 1 gm in 200 mls @ 133.333 mls/hr IVPB Q12H [facility] PRN Reason: Protocol Stop: 10/23/17 10:01 Last Admin: 10/19/17 05:05 Dose: 133.333 mls/hr Insulin Human Regular (Novolin R) 0 unit SC ACHS [facility] PRN Reason: Protocol Last Admin: 10/19/17 08:18 Dose: Not Given Montelukast Sodium (Singulair) 10 mg PO DAILY [facility] Last Admin: 10/19/17 10:20 Dose: Not Given Morphine Sulfate (Morphine) 2 mg IVP Q4H PRN PRN Reason: Pain, severe (8-10) Ondansetron HCl (Zofran Inj) 4 mg IVP ONCE PRN PRN Reason: Nausea/Vomiting Stop: 10/19/17 13:43 Ondansetron HCl (Zofran Inj) 4 mg IVP ONCE PRN PRN Reason: Nausea/Vomiting Oxycodone/Acetaminophen (Percocet 5/325 Mg Tab) 2 tab PO Q4H PRN PRN Reason: Pain, moderate (4-7) Stop: 10/22/17 11:57 Pneumococcal Polyvalent Vaccine (Pneumovax 23 Vaccine) 0.5 ml IM .ONCE ONE Stop: 10/19/17 14:32 Pregabalin (Lyrica) 150 mg PO DAILY [facility] Last Admin: 10/19/17 10:20 Dose: Not Given Rosuvastatin Calcium (Crestor) 10 mg PO HS [facility] Last Admin: 10/18/17 22:22 Dose: 10 mg Physical Exam - Constitutional Appears: Non-toxic, Chronically Ill - Head Exam Head Exam: NORMOCEPHALIC - Eye Exam Eye Exam: PERRL. absent: Scleral icterus - ENT Exam ENT Exam: Mucous Membranes Dry, Normal External Ear Exam - Neck Exam Neck exam: Negative for: Lymphadenopathy - Respiratory Exam Respiratory Exam: Decreased Breath Sounds, Clear to Auscultation Bilateral - Cardiovascular Exam Cardiovascular Exam: REGULAR RHYTHM, +S1, +S2 - GI/Abdominal Exam GI & Abdominal Exam: Diminished Bowel Sounds, Soft. absent: Tenderness - Rectal Exam Rectal Exam: Deferred - Exam Exam: NORMAL INSPECTION - Extremities Exam Extremities exam: Positive for: pedal pulses present. Negative for: calf tenderness, pedal edema, tenderness Additional comments: swelling redness right 5th digit/ dorsum hand - Back Exam Back exam: absent: CVA tenderness (L), CVA tenderness (R) - Neurological Exam Neurological exam: Alert, CN II-XII Intact, Oriented x3, Reflexes Normal - Psychiatric Exam Psychiatric exam: Normal Mood - Skin Skin Exam: Dry, Intact Results - Vital Signs Recent Vital Signs: Last Vital Signs Temp 98.8 F 10/19/17 08:00 Pulse 85 10/19/17 08:00 Resp 20 10/19/17 08:00 BP 114/70 10/19/17 08:00 Pulse Ox 97 10/19/17 08:00 - Labs Result Diagrams: 10/19/17 08:34 10/19/17 08:34 Labs: Laboratory Results - last 24 hr 10/17/17 10/18/17 10/18/17 19:00 06:30 16:32 WBC RBC Hgb Hct MCV MCH MCHC RDW Plt Count MPV Neut % (Auto) Lymph % (Auto) [place] % (Auto) Eos % (Auto) Baso % (Auto) Neut # (Auto) Lymph # (Auto) [place] # (Auto) Eos # (Auto) Baso # (Auto) Sodium Potassium Chloride Carbon Dioxide Anion Gap BUN Creatinine Est GFR ( Amer) Est GFR (Non-Af Amer) POC Glucose (mg/dL) 179 H Random Glucose Calcium Phosphorus Magnesium Total Bilirubin AST ALT Alkaline Phosphatase Total Protein Albumin Globulin Albumin/Globulin Ratio H.influenzae Type B Ag Negative Negative N.meningitidis ACY/W135 Negative Negative N.meningi B/E.coli K1 Ag Negative Negative Group B Strep Antigen Negative Negative S. pneumoniae Antigen Negative Negative 10/18/17 10/19/17 10/19/17 22:27 07:15 08:34 WBC 14.6 H RBC 4.03 L Hgb 12.4 Hct 36.3 MCV 90.1 MCH 30.9 MCHC 34.2 RDW 13.1 Plt Count 320 MPV 7.3 Neut % (Auto) 70.0 Lymph % (Auto) 19.2 L [place] % (Auto) 9.9 Eos % (Auto) 0.5 Baso % (Auto) 0.4 Neut # (Auto) 10.3 H Lymph # (Auto) 2.8 [place] # (Auto) 1.4 H Eos # (Auto) 0.1 Baso # (Auto) 0.1 Sodium Potassium Chloride Carbon Dioxide Anion Gap BUN Creatinine Est GFR ( Amer) Est GFR (Non-Af Amer) POC Glucose (mg/dL) 192 H 143 H Random Glucose Calcium Phosphorus Magnesium Total Bilirubin AST ALT Alkaline Phosphatase Total Protein Albumin Globulin Albumin/Globulin Ratio H.influenzae Type B Ag N.meningitidis ACY/W135 N.meningi B/E.coli K1 Ag Group B Strep Antigen S. pneumoniae Antigen 10/19/17 08:34 WBC RBC Hgb Hct MCV MCH MCHC RDW Plt Count MPV Neut % (Auto) Lymph % (Auto) [place] % (Auto) Eos % (Auto) Baso % (Auto) Neut # (Auto) Lymph # (Auto) [place] # (Auto) Eos # (Auto) Baso # (Auto) Sodium 140 Potassium 3.8 Chloride 109 H Carbon Dioxide 22 Anion Gap 13 BUN 6 L Creatinine 0.9 Est GFR ( Amer) > 60 Est GFR (Non-Af Amer) > 60 POC Glucose (mg/dL) Random Glucose 147 H Calcium 8.6 Phosphorus 2.0 L Magnesium 2.3 Total Bilirubin 1.7 H AST 34 ALT 41 Alkaline Phosphatase 61 Total Protein 6.9 Albumin 3.8 Globulin 3.1 Albumin/Globulin Ratio 1.3 H.influenzae Type B Ag N.meningitidis ACY/W135 N.meningi B/E.coli K1 Ag Group B Strep Antigen S. pneumoniae Antigen Assessment & Plan (1) Cellulitis of hand Status: Acute - Assessment and Plan (Free Text) Assessment: severe SSTI/ abscess right hand no evidence of OM but would consider MRI await OR cultures cont IV antibiotics
--- NOTE | 2017-10-19 14:10 | VASCLAB ---
Date of service: 10/18/2017 PROCEDURE: Right Upper Extremity Venous Duplex Exam HISTORY: Cellulitis, DVT, Right upper extremity PRIORS: None. TECHNIQUE: Right upper extremity, internal jugular, subclavian, axillary, brachial, ulnar, radial, basilic and upper cephalic veins were evaluated. Flow was assessed with color Doppler, compressibility, assessment of phasic flow and augmentation response. Report prepared by BRENNA Maradiaga FINDINGS: RIGHT: 1. Internal Jugular: 1.1. Compressibility - Fully compressible: Thrombus - None : Flow - Phasic: Augmentation -Normal: Reflux - None. 2. Subclavian: 2.1. Compressibility - Fully compressible: Thrombus - None : Flow - Phasic: Augmentation -Normal: Reflux - None. 3. Axillary: 3.1. Compressibility - Fully compressible: Thrombus - None : Flow - Phasic: Augmentation -Normal: Reflux - None. 4. Brachial: 4.1. Compressibility - Fully compressible: Thrombus - None: Flow - Phasic: Augmentation -Normal: Reflux - None. 5. Ulnar: 5.1. Compressibility - Fully compressible: Thrombus - None: Flow - Phasic: Augmentation -Normal: Reflux - None. 6. Radial: 6.1. Compressibility - Fully compressible: Thrombus - None: Flow - Phasic: Augmentation - Normal: Reflux - None. 7. Cephalic: 7.1. Compressibility - Fully compressible: Thrombus - None: Flow - Phasic: Augmentation -Normal: Reflux - None. 8. Basilic: 8.1. Compressibility - Fully compressible: Thrombus - None: Flow - Phasic: Augmentation -Normal: Reflux - None. OTHER FINDINGS: Right: None. IMPRESSION: Right: No evidence of vein thrombosis of the right upper extremity with excellent venous flow. Normal valve function noted of the right side. Normal venous flow noted in the left internal jugular and LEFT subclavian veins.
[2017-10-19] MEDS ORDERED: Pneumococcal 23-Valent Vaccine IM ONE (14:31)
[2017-10-19 16:15] VITALS: RESP 20
[2017-10-19] MEDS ORDERED: Potassium Phosphate 15 MMOLE in Sodium Chloride 0.9% 250 ML IVPB ONE (20:43)
--- NOTE | 2017-10-19 21:50 | CP.PCM.PN ---
Subjective - Date & Time of Evaluation Date of Evaluation: 10/19/17 Time of Evaluation: 21:50 - Subjective Subjective: Patient today underwent incision and drainage of the right hand abscess. Currently patient is doing well. White count is improving. No fever noted. Tolerating the feeding We will continue the IV antibiotics seen by infectious disease. Awaiting for culture. We will discuss with the surgical team for follow-up. And also antibiotic plan Objective - Vital Signs/Intake and Output Vital Signs (last 24 hours): Temp Pulse Resp BP Pulse Ox 99.8 F H 82 20 124/77 97 10/19/17 16:00 10/19/17 16:00 10/19/17 16:00 10/19/17 16:00 10/19/17 16:00 Intake and Output: 10/19/17 10/20/17 18:59 06:59 Intake Total 1325 Output Total 600 Balance 725 - Medications Medications: Current Medications Acetaminophen (Tylenol 325mg Tab) 650 mg PO Q6 PRN PRN Reason: Fever >100.4 F Last Admin: 10/18/17 08:38 Dose: 650 mg Dextrose (Dextrose 50% Inj) 0 ml IV STAT PRN; Protocol PRN Reason: Hypoglycemia Protocol Dextrose (Glutose 15) 0 gm PO ONCE PRN; Protocol PRN Reason: Hypoglycemia Protocol Glucagon (Glucagen Diagnostic Kit) 0 mg IM STAT PRN; Protocol PRN Reason: Hypoglycemia Protocol Heparin Sodium (Porcine) (Heparin) 5,000 units SC Q12 [facility] Last Admin: 10/19/17 10:20 Dose: Not Given Clindamycin Phosphate 300 mg/ (Sodium Chloride) 52 mls @ 100 mls/hr IVPB Q6H [facility] PRN Reason: Protocol Last Admin: 10/19/17 13:47 Dose: 100 mls/hr Dextrose (Dextrose 5% In Water 1000 Ml) 1,000 mls @ 0 mls/hr IV .Q0M PRN; Protocol; Per Protocol PRN Reason: Hypoglycemia Protocol Piperacillin Sod/Tazobactam Sod (Zosyn 3.375 Gm Iv Premix) 3.375 gm in 50 mls @ 100 mls/hr IVPB Q6H [facility] PRN Reason: Protocol Last Admin: 10/19/17 14:46 Dose: 100 mls/hr Vancomycin/Sodium Chloride (Vancomycin 1 Gm/Ns 200 Ml) 1 gm in 200 mls @ 133.333 mls/hr IVPB Q12H [facility] PRN Reason: Protocol Stop: 10/23/17 10:01 Last Admin: 10/19/17 18:01 Dose: 133.333 mls/hr Potassium Phosphate 15 mmole/ (Sodium Chloride) 255 mls @ 42.5 mls/hr IVPB ONCE ONE Stop: 10/20/17 02:42 Insulin Human Regular (Novolin R) 0 unit SC ACHS [facility] PRN Reason: Protocol Last Admin: 10/19/17 16:30 Dose: Not Given Montelukast Sodium (Singulair) 10 mg PO DAILY [facility] Last Admin: 10/19/17 10:20 Dose: Not Given Morphine Sulfate (Morphine) 2 mg IVP Q4H PRN PRN Reason: Pain, severe (8-10) Ondansetron HCl (Zofran Inj) 4 mg IVP ONCE PRN PRN Reason: Nausea/Vomiting Oxycodone/Acetaminophen (Percocet 5/325 Mg Tab) 2 tab PO Q4H PRN PRN Reason: Pain, moderate (4-7) Stop: 10/22/17 11:57 Pregabalin (Lyrica) 150 mg PO DAILY [facility] Last Admin: 10/19/17 10:20 Dose: Not Given Rosuvastatin Calcium (Crestor) 10 mg PO HS [facility] Last Admin: 10/18/17 22:22 Dose: 10 mg - Labs Labs: 10/19/17 08:34 10/19/17 08:34
[2017-10-20] MEDS: Clindamycin 300 MG in Sodium Chloride 0.9% 50 ML IVPB SCH ×4 (01:54→19:04)
[2017-10-20] MEDS: Piperacill/Tazo 3.375gm in Dex 3.375 GM/50 ML BAG IVPB SCH ×4 (02:49→20:14)
[2017-10-20] MEDS: Oxycodone/Acetaminophen 5/325 mg Tab PO PRN ×2 (03:24→19:07)
--- NOTE | 2017-10-20 04:38 | CARD ---
APPROVED REPORT Date of service: 10/18/2017 EXAM: Two-dimensional and M-mode echocardiogram with Doppler and color Doppler. Other Information Quality : GoodRhythm : INDICATION Infection:Rule out subacute bacterial endocarditis RISK FACTORS Hypertension Diabetes 2D DIMENSIONS IVSd0.9 (0.7-1.1cm)LVDd4.1 (3.9-5.9cm) PWd0.7 (0.7-1.1cm)LVDs2.5 (2.5-4.0cm) FS (%) 39.2 %LVEF (%)70.2 (>50%) M-Mode DIMENSIONS RVDd1.83 (2.1-3.2cm)Left Atrium (MM)3.33 (2.5-4.0cm) IVSd0.90 (0.7-1.1cm)Aortic Root2.68 (2.2-3.7cm) LVDd4.46 (4.0-5.6cm)Aortic Cusp Exc.1.89 (1.5-2.0cm) PWd0.65 (0.7-1.1cm)FS (%) 44 % LVDs2.51 (2.0-3.8cm)LVEF (%)75 (>50%) Mitral Valve MV E Wscshiaj03.7cm/sMV A Nebptwli84.9cm/sE/A ratio1.1 TDI E/Lateral E'0.0E/Medial E'0.0 Tricuspid Valve TR Peak [id number]/sTR Peak [id number] LEFT VENTRICLE The left ventricle is normal size. There is normal left ventricular wall thickness. Left ventricle systolic function is normal. The Ejection Fraction is >70%. There is normal LV segmental wall motion. The left ventricular diastolic function is normal. No left ventricle thrombus noted on this study. RIGHT VENTRICLE The right ventricle is normal size. There is normal right ventricular wall thickness. The right ventricular systolic function is normal. ATRIA The left atrium size is normal. The right atrium size is normal. The interatrial septum is intact with no evidence for an atrial septal defect. AORTIC VALVE The aortic valve is normal in structure. No aortic regurgitation is present. There is no aortic valvular stenosis. There is reici-sg-[id number] size aortic valvular vegetation. Suggest HAILEE for more definitive diagnosis. MITRAL VALVE The mitral valve is normal in structure. There is no evidence of mitral valve prolapse. There is no mitral valve stenosis. Mitral regurgitation is mild. TRICUSPID VALVE The tricuspid valve is normal in structure. There is mild tricuspid regurgitation. Right ventricular systolic pressure is estimated at less than 30 mmHg. There is no pulmonary hypertension. PULMONIC VALVE The pulmonic valve is not well visualized. There is mild pulmonic valvular regurgitation. GREAT VESSELS The aortic root is normal in size. PERICARDIAL EFFUSION There is no pericardial effusion. <Conclusion> Left ventricle systolic function is normal. The Ejection Fraction is >70%. No aortic regurgitation is present. Mitral regurgitation is mild. There is mild tricuspid regurgitation. There is no pulmonary hypertension. There is mild pulmonic valvular regurgitation. There is [id number] size aortic valvular VEGETATION. Suggest HAILEE for more definitive diagnosis.
[2017-10-20] MEDS: Vancomycin 1 gm/NS 200 ml 1 GM/200 ML BAG IVPB SCH ×2 (05:12→17:16)
--- NOTE | 2017-10-20 07:35 | CARD ---
APPROVED REPORT Date of service: 10/17/2017 EKG Measurement Heart [id number] <Conclusion> Sinus tachycardia Left axis deviation Abnormal ECG
[2017-10-20 07:48] LABS: BASO # 0.1 K/uL (0.0-0.2); BASO % 0.6 % (0.0-2.0); EOS # 0.3 K/uL (0.0-0.7); EOS % 2.9 % (0.0-4.0); LYMPH # 2.8 K/uL (1.0-4.3); LYMPH % 27.4 % (20.0-40.0); MEAN CELL VOLUME 90.2 fL (80.0-94.0); MEAN CORPUSCULAR HEMOGLOBIN 31.6 pg (27.0-31.0); MEAN PLATELET VOLUME 7.4 fL (7.2-11.7); MONO # 1.2 K/uL (0.0-0.8); MONO % 11.7 % (0.0-10.0); NEUT # 5.9 K/uL (1.8-7.0); NEUT % 57.4 % (50.0-75.0); RBC 3.81 Mil/uL (4.40-5.90); RED CELL DISTRIBUTION WIDTH 12.9 % (11.5-14.5); WHITE BLOOD COUNT 10.2 K/uL (4.8-10.8)
[2017-10-20 08:20] LABS: ALB/GLOB RATIO 1.1 (1.0-2.1); ALBUMIN 3.5 g/dL (3.5-5.0); ALT/SGPT 63 U/L (21-72); AST/SGOT 74 U/L (17-59); BLOOD UREA NITROGEN 8 mg/dL (9-20); CALCIUM 8.5 mg/dl (8.6-10.4); GFR NON-AFRICAN AMERICAN > 60
[2017-10-20] MEDS: (Novolin R) Insulin Human Regular 100 units/ml vial SC SCH ×4 (08:41→21:32)
--- NOTE | 2017-10-20 10:09 | CP.PCM.PN ---
Subjective - Date & Time of Evaluation Date of Evaluation: 10/20/17 Time of Evaluation: 10:00 - Subjective Subjective: Patient seen and examined at bedside comfortable. Pain well controlled. Tolerating PT well OOB. No acute events overnight. Denies CP/SOB/dizziness. Objective - Vital Signs/Intake and Output Vital Signs (last 24 hours): Temp Pulse Resp BP Pulse Ox 97.6 F 83 20 100/60 96 10/20/17 08:16 10/20/17 08:16 10/20/17 08:16 10/20/17 08:16 10/20/17 08:16 Intake and Output: 10/20/17 10/20/17 06:59 18:59 Intake Total 660 Output Total 1200 Balance -540 - Medications Medications: Current Medications Acetaminophen (Tylenol 325mg Tab) 650 mg PO Q6 PRN PRN Reason: Fever >100.4 F Last Admin: 10/18/17 08:38 Dose: 650 mg Dextrose (Dextrose 50% Inj) 0 ml IV STAT PRN; Protocol PRN Reason: Hypoglycemia Protocol Dextrose (Glutose 15) 0 gm PO ONCE PRN; Protocol PRN Reason: Hypoglycemia Protocol Glucagon (Glucagen Diagnostic Kit) 0 mg IM STAT PRN; Protocol PRN Reason: Hypoglycemia Protocol Heparin Sodium (Porcine) (Heparin) 5,000 units SC Q12 [facility] Last Admin: 10/20/17 09:22 Dose: 5,000 units Clindamycin Phosphate 300 mg/ (Sodium Chloride) 52 mls @ 100 mls/hr IVPB Q6H [facility] PRN Reason: Protocol Last Admin: 10/20/17 07:29 Dose: 100 mls/hr Dextrose (Dextrose 5% In Water 1000 Ml) 1,000 mls @ 0 mls/hr IV .Q0M PRN; Protocol; Per Protocol PRN Reason: Hypoglycemia Protocol Piperacillin Sod/Tazobactam Sod (Zosyn 3.375 Gm Iv Premix) 3.375 gm in 50 mls @ 100 mls/hr IVPB Q6H [facility] PRN Reason: Protocol Last Admin: 10/20/17 09:22 Dose: 100 mls/hr Vancomycin/Sodium Chloride (Vancomycin 1 Gm/Ns 200 Ml) 1 gm in 200 mls @ 133.333 mls/hr IVPB Q12H [facility] PRN Reason: Protocol Stop: 10/23/17 10:01 Last Admin: 10/20/17 05:12 Dose: 133.333 mls/hr Insulin Human Regular (Novolin R) 0 unit SC ACHS [facility] PRN Reason: Protocol Last Admin: 10/20/17 08:41 Dose: 2 units Montelukast Sodium (Singulair) 10 mg PO DAILY [facility] Last Admin: 10/20/17 09:21 Dose: 10 mg Morphine Sulfate (Morphine) 2 mg IVP Q4H PRN PRN Reason: Pain, severe (8-10) Ondansetron HCl (Zofran Inj) 4 mg IVP ONCE PRN PRN Reason: Nausea/Vomiting Oxycodone/Acetaminophen (Percocet 5/325 Mg Tab) 2 tab PO Q4H PRN PRN Reason: Pain, moderate (4-7) Stop: 10/22/17 11:57 Last Admin: 10/20/17 03:24 Dose: 2 tab Pneumococcal Polyvalent Vaccine (Pneumovax 23 Vaccine) 0.5 ml IM .ONCE [facility] Stop: 10/21/17 10:01 Pregabalin (Lyrica) 150 mg PO DAILY [facility] Last Admin: 10/20/17 09:21 Dose: 150 mg Rosuvastatin Calcium (Crestor) 10 mg PO HS [facility] Last Admin: 10/19/17 22:00 Dose: 10 mg - Labs Labs: 10/20/17 07:24 10/20/17 07:24 - Extremities Exam Additional comments: R hand: Dressings intact with dry sanguinous drainage dorsally dressings removed revealing dorsal hand wound and 5th digit wound intact with sutures, minimal bloody drainage woodrow in place sensation intact MN/UN/RN motor intact MN/UN/RN 2 sec cap refill all fingers Assessment and Plan (1) Abscess of right hand Assessment & Plan: POD #1 s/p R hand I&D -Wet to dry dressings changed, woodrow removed, dry wrap applied. Will continue daily until seen by Dr. Franco in office -abx as per ID -awaiting OR culture results -PT/OT, achieve full A/PROM -orthopedically stable -above d/w Dr. Franco in agreement Status: Acute
--- NOTE | 2017-10-20 15:40 | CP.PCM.PN ---
Subjective - Date & Time of Evaluation Date of Evaluation: 10/20/17 Time of Evaluation: 08:00 - Subjective Subjective: less pain no fever Objective - Vital Signs/Intake and Output Vital Signs (last 24 hours): Temp Pulse Resp BP Pulse Ox 97.6 F 83 20 100/60 96 10/20/17 08:16 10/20/17 08:16 10/20/17 08:16 10/20/17 08:16 10/20/17 08:16 Intake and Output: 10/20/17 10/20/17 06:59 18:59 Intake Total 660 760 Output Total 1200 600 Balance -540 160 - Medications Medications: Current Medications Acetaminophen (Tylenol 325mg Tab) 650 mg PO Q6 PRN PRN Reason: Fever >100.4 F Last Admin: 10/18/17 08:38 Dose: 650 mg Dextrose (Dextrose 50% Inj) 0 ml IV STAT PRN; Protocol PRN Reason: Hypoglycemia Protocol Dextrose (Glutose 15) 0 gm PO ONCE PRN; Protocol PRN Reason: Hypoglycemia Protocol Glucagon (Glucagen Diagnostic Kit) 0 mg IM STAT PRN; Protocol PRN Reason: Hypoglycemia Protocol Heparin Sodium (Porcine) (Heparin) 5,000 units SC Q12 [facility] Last Admin: 10/20/17 09:22 Dose: 5,000 units Clindamycin Phosphate 300 mg/ (Sodium Chloride) 52 mls @ 100 mls/hr IVPB Q6H [facility] PRN Reason: Protocol Last Admin: 10/20/17 13:05 Dose: 100 mls/hr Dextrose (Dextrose 5% In Water 1000 Ml) 1,000 mls @ 0 mls/hr IV .Q0M PRN; Protocol; Per Protocol PRN Reason: Hypoglycemia Protocol Piperacillin Sod/Tazobactam Sod (Zosyn 3.375 Gm Iv Premix) 3.375 gm in 50 mls @ 100 mls/hr IVPB Q6H [facility] PRN Reason: Protocol Last Admin: 10/20/17 14:06 Dose: 100 mls/hr Vancomycin/Sodium Chloride (Vancomycin 1 Gm/Ns 200 Ml) 1 gm in 200 mls @ 133.333 mls/hr IVPB Q12H [facility] PRN Reason: Protocol Stop: 10/23/17 10:01 Last Admin: 10/20/17 05:12 Dose: 133.333 mls/hr Insulin Human Regular (Novolin R) 0 unit SC ACHS [facility] PRN Reason: Protocol Last Admin: 10/20/17 12:26 Dose: 2 units Montelukast Sodium (Singulair) 10 mg PO DAILY [facility] Last Admin: 10/20/17 09:21 Dose: 10 mg Morphine Sulfate (Morphine) 2 mg IVP Q4H PRN PRN Reason: Pain, severe (8-10) Ondansetron HCl (Zofran Inj) 4 mg IVP ONCE PRN PRN Reason: Nausea/Vomiting Oxycodone/Acetaminophen (Percocet 5/325 Mg Tab) 2 tab PO Q4H PRN PRN Reason: Pain, moderate (4-7) Stop: 10/22/17 11:57 Last Admin: 10/20/17 03:24 Dose: 2 tab Pneumococcal Polyvalent Vaccine (Pneumovax 23 Vaccine) 0.5 ml IM .ONCE ONE Stop: 10/21/17 10:01 Pregabalin (Lyrica) 150 mg PO DAILY [facility] Last Admin: 10/20/17 09:21 Dose: 150 mg Rosuvastatin Calcium (Crestor) 10 mg PO HS [facility] Last Admin: 10/19/17 22:00 Dose: 10 mg - Labs Labs: 10/20/17 07:24 10/20/17 07:24 - Constitutional Appears: Non-toxic, Chronically Ill - Head Exam Head Exam: NORMOCEPHALIC - Eye Exam Eye Exam: PERRL - ENT Exam ENT Exam: Mucous Membranes Dry - Neck Exam Neck Exam: absent: Lymphadenopathy - Respiratory Exam Respiratory Exam: Decreased Breath Sounds - Cardiovascular Exam Cardiovascular Exam: REGULAR RHYTHM - GI/Abdominal Exam GI & Abdominal Exam: Distended, Soft - Rectal Exam Rectal Exam: Deferred - Exam Exam: NORMAL INSPECTION - Extremities Exam Extremities Exam: absent: Pedal Edema - Back Exam Back Exam: absent: CVA tenderness (L), CVA tenderness (R) - Neurological Exam Neurological Exam: Alert, Awake, Oriented x3 - Psychiatric Exam Psychiatric exam: Normal Mood - Skin Skin Exam: Dry Additional comments: right hand swelling + wound inspected Assessment and Plan (1) Cellulitis of hand Status: Acute - Assessment and Plan (Free Text) Assessment: await cultures from abscess cont IV rx
[2017-10-21] MEDS: Clindamycin 300 MG in Sodium Chloride 0.9% 50 ML IVPB SCH ×4 (01:34→20:00)
[2017-10-21] MEDS: Piperacill/Tazo 3.375gm in Dex 3.375 GM/50 ML BAG IVPB SCH ×4 (02:33→21:00)
[2017-10-21] MEDS: Vancomycin 1 gm/NS 200 ml 1 GM/200 ML BAG IVPB SCH ×2 (03:49→16:45)
[2017-10-21] MEDS: Oxycodone/Acetaminophen 5/325 mg Tab PO PRN ×2 (03:55→22:45)
--- NOTE | 2017-10-21 07:23 | CP.PCM.PN ---
Subjective - Date & Time of Evaluation Date of Evaluation: 10/21/17 Time of Evaluation: 07:23 - Subjective Subjective: Orthopedic progress note: Dr. Franco Objective - Vital Signs/Intake and Output Vital Signs (last 24 hours): Temp Pulse Resp BP Pulse Ox 97.8 F 64 20 109/66 98 10/20/17 23:28 10/20/17 23:28 10/20/17 23:28 10/20/17 23:28 10/20/17 23:28 Intake and Output: 10/21/17 10/21/17 06:59 18:59 Intake Total 540 Output Total 600 Balance -60 - Medications Medications: Current Medications Acetaminophen (Tylenol 325mg Tab) 650 mg PO Q6 PRN PRN Reason: Fever >100.4 F Last Admin: 10/18/17 08:38 Dose: 650 mg Dextrose (Dextrose 50% Inj) 0 ml IV STAT PRN; Protocol PRN Reason: Hypoglycemia Protocol Dextrose (Glutose 15) 0 gm PO ONCE PRN; Protocol PRN Reason: Hypoglycemia Protocol Glucagon (Glucagen Diagnostic Kit) 0 mg IM STAT PRN; Protocol PRN Reason: Hypoglycemia Protocol Heparin Sodium (Porcine) (Heparin) 5,000 units SC Q12 [facility] Last Admin: 10/20/17 21:46 Dose: 5,000 units Clindamycin Phosphate 300 mg/ (Sodium Chloride) 52 mls @ 100 mls/hr IVPB Q6H [facility] PRN Reason: Protocol Last Admin: 10/21/17 01:34 Dose: 100 mls/hr Piperacillin Sod/Tazobactam Sod (Zosyn 3.375 Gm Iv Premix) 3.375 gm in 50 mls @ 100 mls/hr IVPB Q6H [facility] PRN Reason: Protocol Last Admin: 10/21/17 02:33 Dose: 100 mls/hr Vancomycin/Sodium Chloride (Vancomycin 1 Gm/Ns 200 Ml) 1 gm in 200 mls @ 133.333 mls/hr IVPB Q12H [facility] PRN Reason: Protocol Stop: 10/23/17 10:01 Last Admin: 10/21/17 03:49 Dose: 133.333 mls/hr Insulin Human Regular (Novolin R) 0 unit SC ACHS [facility] PRN Reason: Protocol Last Admin: 10/20/17 21:32 Dose: Not Given Montelukast Sodium (Singulair) 10 mg PO DAILY [facility] Last Admin: 10/20/17 09:21 Dose: 10 mg Morphine Sulfate (Morphine) 2 mg IVP Q4H PRN PRN Reason: Pain, severe (8-10) Ondansetron HCl (Zofran Inj) 4 mg IVP ONCE PRN PRN Reason: Nausea/Vomiting Oxycodone/Acetaminophen (Percocet 5/325 Mg Tab) 2 tab PO Q4H PRN PRN Reason: Pain, moderate (4-7) Stop: 10/22/17 11:57 Last Admin: 10/21/17 03:55 Dose: 2 tab Pneumococcal Polyvalent Vaccine (Pneumovax 23 Vaccine) 0.5 ml IM .ONCE ONE Stop: 10/21/17 10:01 Pregabalin (Lyrica) 150 mg PO DAILY [facility] Last Admin: 10/20/17 09:21 Dose: 150 mg Rosuvastatin Calcium (Crestor) 10 mg PO HS [facility] Last Admin: 10/20/17 21:46 Dose: 10 mg - Labs Labs: 10/20/17 07:24 10/20/17 07:24 - Extremities Exam Additional comments: R hand: Dressings intact with minimal dry serosanguinous drainage dorsally dressings removed revealing dorsal hand wound and 5th digit wound intact with sutures, minimal serosanguinous drainage sensation intact MN/UN/RN motor intact MN/UN/RN 2 sec cap refill all fingers Assessment and Plan (1) Abscess of right hand Assessment & Plan: POD #2 s/p R hand I&D -Wet to dry dressings changed,Will need to continue daily dressing changes until seen by Dr. Franco in office -MRSA from OR cultures. abx as per ID -PT/OT, achieve full A/PROM -orthopedically stable for discharge -above d/w Dr. Franco in agreement Status: Acute
[2017-10-21 07:36] LABS: HEMOGLOBIN 12.4 g/dL (12.0-18.0); MEAN CELL VOLUME 89.9 fL (80.0-94.0); MEAN CORPUSCULAR HEMOGLOBIN 31.3 pg (27.0-31.0); MEAN CORPUSCULAR HGB CONC 34.8 g/dL (33.0-37.0); MEAN PLATELET VOLUME 7.1 fL (7.2-11.7); RBC 3.95 Mil/uL (4.40-5.90); RED CELL DISTRIBUTION WIDTH 13.2 % (11.5-14.5); WHITE BLOOD COUNT 9.7 K/uL (4.8-10.8)
[2017-10-21 07:57] LABS: BLOOD UREA NITROGEN 7 mg/dL (9-20); GFR NON-AFRICAN AMERICAN > 60
[2017-10-21] MEDS: (Novolin R) Insulin Human Regular 100 units/ml vial SC SCH ×4 (08:24→21:48)
[2017-10-21] MEDS ORDERED: Pneumococcal 23-Valent Vaccine IM ONE (10:00)
--- NOTE | 2017-10-21 18:29 | CP.PCM.PN ---
Subjective - Date & Time of Evaluation Date of Evaluation: 10/21/17 Time of Evaluation: 10:00 - Subjective Subjective: awake alert afeb nad right hand with less swelling Objective - Vital Signs/Intake and Output Vital Signs (last 24 hours): Temp Pulse Resp BP Pulse Ox 99.4 F 73 20 126/79 97 10/21/17 16:00 10/21/17 16:00 10/21/17 16:00 10/21/17 16:00 10/21/17 16:00 Intake and Output: 10/21/17 10/21/17 06:59 18:59 Intake Total 540 630 Output Total 600 Balance -60 630 - Medications Medications: Current Medications Acetaminophen (Tylenol 325mg Tab) 650 mg PO Q6 PRN PRN Reason: Fever >100.4 F Last Admin: 10/18/17 08:38 Dose: 650 mg Dextrose (Dextrose 50% Inj) 0 ml IV STAT PRN; Protocol PRN Reason: Hypoglycemia Protocol Dextrose (Glutose 15) 0 gm PO ONCE PRN; Protocol PRN Reason: Hypoglycemia Protocol Glucagon (Glucagen Diagnostic Kit) 0 mg IM STAT PRN; Protocol PRN Reason: Hypoglycemia Protocol Heparin Sodium (Porcine) (Heparin) 5,000 units SC Q12 [facility] Last Admin: 10/21/17 10:50 Dose: 5,000 units Clindamycin Phosphate 300 mg/ (Sodium Chloride) 52 mls @ 100 mls/hr IVPB Q6H [facility] PRN Reason: Protocol Last Admin: 10/21/17 14:35 Dose: 100 mls/hr Piperacillin Sod/Tazobactam Sod (Zosyn 3.375 Gm Iv Premix) 3.375 gm in 50 mls @ 100 mls/hr IVPB Q6H [facility] PRN Reason: Protocol Last Admin: 10/21/17 15:39 Dose: 100 mls/hr Vancomycin/Sodium Chloride (Vancomycin 1 Gm/Ns 200 Ml) 1 gm in 200 mls @ 133.333 mls/hr IVPB Q12H [facility] PRN Reason: Protocol Stop: 10/23/17 10:01 Last Admin: 10/21/17 16:45 Dose: 133.333 mls/hr Insulin Human Regular (Novolin R) 0 unit SC ACHS [facility] PRN Reason: Protocol Last Admin: 10/21/17 16:30 Dose: Not Given Montelukast Sodium (Singulair) 10 mg PO DAILY [facility] Last Admin: 10/21/17 10:50 Dose: 10 mg Morphine Sulfate (Morphine) 2 mg IVP Q4H PRN PRN Reason: Pain, severe (8-10) Ondansetron HCl (Zofran Inj) 4 mg IVP ONCE PRN PRN Reason: Nausea/Vomiting Oxycodone/Acetaminophen (Percocet 5/325 Mg Tab) 2 tab PO Q4H PRN PRN Reason: Pain, moderate (4-7) Stop: 10/22/17 11:57 Last Admin: 10/21/17 03:55 Dose: 2 tab Pregabalin (Lyrica) 150 mg PO DAILY [facility] Last Admin: 10/21/17 10:50 Dose: 150 mg Rosuvastatin Calcium (Crestor) 10 mg PO HS [facility] Last Admin: 10/20/17 21:46 Dose: 10 mg - Labs Labs: 10/21/17 07:20 10/21/17 07:20 - Constitutional Appears: Non-toxic, Chronically Ill - Head Exam Head Exam: NORMOCEPHALIC - Eye Exam Eye Exam: PERRL - ENT Exam ENT Exam: Mucous Membranes Dry - Neck Exam Neck Exam: absent: Lymphadenopathy - Respiratory Exam Respiratory Exam: Decreased Breath Sounds - Cardiovascular Exam Cardiovascular Exam: REGULAR RHYTHM - GI/Abdominal Exam GI & Abdominal Exam: Distended, Soft - Rectal Exam Rectal Exam: Deferred - Exam Exam: NORMAL INSPECTION - Extremities Exam Extremities Exam: absent: Pedal Edema - Back Exam Back Exam: absent: CVA tenderness (L), CVA tenderness (R) - Neurological Exam Neurological Exam: Alert, Awake, Oriented x3 - Psychiatric Exam Psychiatric exam: Depressed Assessment and Plan (1) Cellulitis of hand Status: Acute - Assessment and Plan (Free Text) Assessment: for HAILEE to r/o vegetation cont IV rx for now
--- NOTE | 2017-10-21 20:26 | CP.PCM.PN ---
Subjective - Date & Time of Evaluation Date of Evaluation: 10/21/17 Time of Evaluation: 20:26 - Subjective Subjective: Patient today feeling better. The culture showing evidence of MRSA. After reviewing the records, there is an evidence of aortic valve vegetation noted. So I recommended cardiology evaluation for possible HAILEE. After HAILEE we will plan for antibiotic duration and discharge plan Objective - Vital Signs/Intake and Output Vital Signs (last 24 hours): Temp Pulse Resp BP Pulse Ox 99.4 F 73 20 126/79 97 10/21/17 16:00 10/21/17 16:00 10/21/17 16:00 10/21/17 16:00 10/21/17 16:00 Intake and Output: 10/21/17 10/22/17 18:59 06:59 Intake Total 630 Balance 630 - Medications Medications: Current Medications Acetaminophen (Tylenol 325mg Tab) 650 mg PO Q6 PRN PRN Reason: Fever >100.4 F Last Admin: 10/18/17 08:38 Dose: 650 mg Dextrose (Dextrose 50% Inj) 0 ml IV STAT PRN; Protocol PRN Reason: Hypoglycemia Protocol Dextrose (Glutose 15) 0 gm PO ONCE PRN; Protocol PRN Reason: Hypoglycemia Protocol Glucagon (Glucagen Diagnostic Kit) 0 mg IM STAT PRN; Protocol PRN Reason: Hypoglycemia Protocol Heparin Sodium (Porcine) (Heparin) 5,000 units SC Q12 [facility] Last Admin: 10/21/17 10:50 Dose: 5,000 units Clindamycin Phosphate 300 mg/ (Sodium Chloride) 52 mls @ 100 mls/hr IVPB Q6H [facility] PRN Reason: Protocol Last Admin: 10/21/17 14:35 Dose: 100 mls/hr Piperacillin Sod/Tazobactam Sod (Zosyn 3.375 Gm Iv Premix) 3.375 gm in 50 mls @ 100 mls/hr IVPB Q6H [facility] PRN Reason: Protocol Last Admin: 10/21/17 15:39 Dose: 100 mls/hr Vancomycin/Sodium Chloride (Vancomycin 1 Gm/Ns 200 Ml) 1 gm in 200 mls @ 133.333 mls/hr IVPB Q12H [facility] PRN Reason: Protocol Stop: 10/23/17 10:01 Last Admin: 10/21/17 16:45 Dose: 133.333 mls/hr Insulin Human Regular (Novolin R) 0 unit SC ACHS [facility] PRN Reason: Protocol Last Admin: 10/21/17 16:30 Dose: Not Given Montelukast Sodium (Singulair) 10 mg PO DAILY [facility] Last Admin: 10/21/17 10:50 Dose: 10 mg Morphine Sulfate (Morphine) 2 mg IVP Q4H PRN PRN Reason: Pain, severe (8-10) Ondansetron HCl (Zofran Inj) 4 mg IVP ONCE PRN PRN Reason: Nausea/Vomiting Oxycodone/Acetaminophen (Percocet 5/325 Mg Tab) 2 tab PO Q4H PRN PRN Reason: Pain, moderate (4-7) Stop: 10/22/17 11:57 Last Admin: 10/21/17 03:55 Dose: 2 tab Pregabalin (Lyrica) 150 mg PO DAILY [facility] Last Admin: 10/21/17 10:50 Dose: 150 mg Rosuvastatin Calcium (Crestor) 10 mg PO HS [facility] Last Admin: 10/20/17 21:46 Dose: 10 mg - Labs Labs: 10/21/17 07:20 10/21/17 07:20
--- NOTE | 2017-10-21 23:43 | CP.PCM.CON ---
History of Present Illness - History of Present Illness History of Present Illness: Consulted for r/o Endocarditis For HAILEE in am Past Patient History - Infectious Disease Hx of Infectious Diseases: None - Past Medical History & Family History Past Medical History?: Yes - Past Social History Smoking Status: Never Smoked - CARDIAC Hx Hypercholesterolemia: Yes Hx Hypertension: Yes - PULMONARY Hx Asthma: Yes - NEUROLOGICAL Hx Neurological Disorder: No - HEENT Hx HEENT Problems: No - RENAL Hx Chronic Kidney Disease: No - ENDOCRINE/METABOLIC Hx Diabetes Mellitus Type 2: Yes - HEMATOLOGICAL/ONCOLOGICAL Hx Blood Disorders: No - INTEGUMENTARY Hx Dermatological Problems: No - MUSCULOSKELETAL/RHEUMATOLOGICAL Hx Arthritis: Yes (BACK) - GASTROINTESTINAL Hx Gastrointestinal Disorders: Yes Hx Gastroesophageal Reflux: Yes - GENITOURINARY/GYNECOLOGICAL Hx Genitourinary Disorders: No - PSYCHIATRIC Hx Substance Use: No - SURGICAL HISTORY Hx Surgeries: Yes Hx Orthopedic Surgery: Yes (BILATERAL TOES SURGERY) - ANESTHESIA Hx Anesthesia: Yes Hx Anesthesia Reactions: No Hx Malignant Hyperthermia: No Meds Allergies/Adverse Reactions: Allergies Allergy/AdvReac Type Severity Reaction Status Date / Time No Known Allergies Allergy Verified 10/17/17 16:26 - Medications Medications: Current Medications Acetaminophen (Tylenol 325mg Tab) 650 mg PO Q6 PRN PRN Reason: Fever >100.4 F Last Admin: 10/18/17 08:38 Dose: 650 mg Dextrose (Dextrose 50% Inj) 0 ml IV STAT PRN; Protocol PRN Reason: Hypoglycemia Protocol Dextrose (Glutose 15) 0 gm PO ONCE PRN; Protocol PRN Reason: Hypoglycemia Protocol Glucagon (Glucagen Diagnostic Kit) 0 mg IM STAT PRN; Protocol PRN Reason: Hypoglycemia Protocol Heparin Sodium (Porcine) (Heparin) 5,000 units SC Q12 [facility] Last Admin: 10/21/17 21:48 Dose: 5,000 units Clindamycin Phosphate 300 mg/ (Sodium Chloride) 52 mls @ 100 mls/hr IVPB Q6H [facility] PRN Reason: Protocol Last Admin: 10/21/17 20:00 Dose: 100 mls/hr Piperacillin Sod/Tazobactam Sod (Zosyn 3.375 Gm Iv Premix) 3.375 gm in 50 mls @ 100 mls/hr IVPB Q6H [facility] PRN Reason: Protocol Last Admin: 10/21/17 21:00 Dose: 100 mls/hr Vancomycin/Sodium Chloride (Vancomycin 1 Gm/Ns 200 Ml) 1 gm in 200 mls @ 133.333 mls/hr IVPB Q12H [facility] PRN Reason: Protocol Stop: 10/23/17 10:01 Last Admin: 10/21/17 16:45 Dose: 133.333 mls/hr Insulin Human Regular (Novolin R) 0 unit SC ACHS [facility] PRN Reason: Protocol Last Admin: 10/21/17 21:48 Dose: Not Given Montelukast Sodium (Singulair) 10 mg PO DAILY [facility] Last Admin: 10/21/17 10:50 Dose: 10 mg Morphine Sulfate (Morphine) 2 mg IVP Q4H PRN PRN Reason: Pain, severe (8-10) Ondansetron HCl (Zofran Inj) 4 mg IVP ONCE PRN PRN Reason: Nausea/Vomiting Oxycodone/Acetaminophen (Percocet 5/325 Mg Tab) 2 tab PO Q4H PRN PRN Reason: Pain, moderate (4-7) Stop: 10/22/17 11:57 Last Admin: 10/21/17 22:45 Dose: 2 tab Pregabalin (Lyrica) 150 mg PO DAILY [facility] Last Admin: 10/21/17 10:50 Dose: 150 mg Rosuvastatin Calcium (Crestor) 10 mg PO HS [facility] Last Admin: 10/21/17 21:48 Dose: 10 mg Results - Vital Signs Recent Vital Signs: Last Vital Signs Temp 99.4 F 10/21/17 16:00 Pulse 73 10/21/17 16:00 Resp 20 10/21/17 16:00 BP 126/79 10/21/17 16:00 Pulse Ox 97 10/21/17 16:00 - Labs Result Diagrams: 10/21/17 07:20 10/21/17 07:20 Labs: Laboratory Results - last 24 hr 10/21/17 10/21/17 10/21/17 07:20 07:20 08:17 WBC 9.7 RBC 3.95 L Hgb 12.4 Hct 35.5 MCV 89.9 MCH 31.3 H MCHC 34.8 RDW 13.2 Plt Count 401 H MPV 7.1 L Sodium 142 Potassium 4.0 Chloride 106 Carbon Dioxide 24 Anion Gap 15 BUN 7 L Creatinine 0.9 Est GFR ( Amer) > 60 Est GFR (Non-Af Amer) > 60 POC Glucose (mg/dL) 101 Random Glucose 110 Calcium 9.0 10/21/17 10/21/17 10/21/17 12:04 16:21 21:09 WBC RBC Hgb Hct MCV MCH MCHC RDW Plt Count MPV Sodium Potassium Chloride Carbon Dioxide Anion Gap BUN Creatinine Est GFR ( Amer) Est GFR (Non-Af Amer) POC Glucose (mg/dL) 167 H 98 120 H Random Glucose Calcium
[2017-10-22] MEDS: Clindamycin 300 MG in Sodium Chloride 0.9% 50 ML IVPB SCH ×4 (02:37→19:52)
[2017-10-22] MEDS: Piperacill/Tazo 3.375gm in Dex 3.375 GM/50 ML BAG IVPB SCH ×4 (03:47→21:24)
[2017-10-22] MEDS: Vancomycin 1 gm/NS 200 ml 1 GM/200 ML BAG IVPB SCH ×2 (04:51→17:20)
[2017-10-22 07:23] LABS: BASO # 0.1 K/uL (0.0-0.2); BASO % 0.9 % (0.0-2.0); EOS # 0.5 K/uL (0.0-0.7); EOS % 4.8 % (0.0-4.0); HEMOGLOBIN 13.3 g/dL (12.0-18.0); LYMPH # 3.3 K/uL (1.0-4.3); LYMPH % 30.9 % (20.0-40.0); MEAN CELL VOLUME 89.3 fL (80.0-94.0); MEAN CORPUSCULAR HEMOGLOBIN 31.1 pg (27.0-31.0); MEAN CORPUSCULAR HGB CONC 34.8 g/dL (33.0-37.0); MEAN PLATELET VOLUME 6.9 fL (7.2-11.7); MONO % 9.4 % (0.0-10.0); NEUT # 5.7 K/uL (1.8-7.0); RBC 4.27 Mil/uL (4.40-5.90); WHITE BLOOD COUNT 10.6 K/uL (4.8-10.8)
[2017-10-22 07:40] LABS: INR 1.2; PROTHROMBIN TIME 13.4 SECONDS (9.7-12.2)
[2017-10-22 07:54] LABS: BLOOD UREA NITROGEN 7 mg/dL (9-20); CALCIUM 9.1 mg/dl (8.6-10.4); GFR NON-AFRICAN AMERICAN > 60
[2017-10-22] MEDS: (Novolin R) Insulin Human Regular 100 units/ml vial SC SCH ×4 (08:11→22:01)
--- NOTE | 2017-10-22 10:48 | CP.PCM.PN ---
Subjective - Date & Time of Evaluation Date of Evaluation: 10/18/17 Time of Evaluation: 10:48 - Subjective Subjective: Patient is feeling well. Post surgery. Comfortable. Less pain. No nausea no vomiting Vital signs stable. Chest good air entry regular heart sounds nontender abdomen. Patient is a 65-year-old male with a history of diabetes hypertension now having abscess in the right hand, status post surgery, on antibiotic infectious disease evaluation will follow the Objective - Vital Signs/Intake and Output Vital Signs (last 24 hours): Temp Pulse Resp BP Pulse Ox 98.0 F 69 20 128/70 98 10/22/17 08:49 10/22/17 08:49 10/22/17 08:49 10/22/17 08:49 10/22/17 08:49 Intake and Output: 10/22/17 10/22/17 06:59 18:59 Intake Total 700 300 Output Total 650 Balance 50 300 - Medications Medications: Current Medications Acetaminophen (Tylenol 325mg Tab) 650 mg PO Q6 PRN PRN Reason: Fever >100.4 F Last Admin: 10/18/17 08:38 Dose: 650 mg Dextrose (Dextrose 50% Inj) 0 ml IV STAT PRN; Protocol PRN Reason: Hypoglycemia Protocol Dextrose (Glutose 15) 0 gm PO ONCE PRN; Protocol PRN Reason: Hypoglycemia Protocol Glucagon (Glucagen Diagnostic Kit) 0 mg IM STAT PRN; Protocol PRN Reason: Hypoglycemia Protocol Heparin Sodium (Porcine) (Heparin) 5,000 units SC Q12 [facility] Last Admin: 10/22/17 09:20 Dose: 5,000 units Clindamycin Phosphate 300 mg/ (Sodium Chloride) 52 mls @ 100 mls/hr IVPB Q6H [facility] PRN Reason: Protocol Last Admin: 10/22/17 09:13 Dose: 100 mls/hr Piperacillin Sod/Tazobactam Sod (Zosyn 3.375 Gm Iv Premix) 3.375 gm in 50 mls @ 100 mls/hr IVPB Q6H [facility] PRN Reason: Protocol Last Admin: 10/22/17 09:24 Dose: 100 mls/hr Vancomycin/Sodium Chloride (Vancomycin 1 Gm/Ns 200 Ml) 1 gm in 200 mls @ 133.333 mls/hr IVPB Q12H [facility] PRN Reason: Protocol Stop: 10/23/17 10:01 Last Admin: 10/22/17 04:51 Dose: 133.333 mls/hr Insulin Human Regular (Novolin R) 0 unit SC ACHS [facility] PRN Reason: Protocol Last Admin: 10/22/17 08:11 Dose: Not Given Montelukast Sodium (Singulair) 10 mg PO DAILY [facility] Last Admin: 10/22/17 09:19 Dose: 10 mg Ondansetron HCl (Zofran Inj) 4 mg IVP ONCE PRN PRN Reason: Nausea/Vomiting Pregabalin (Lyrica) 150 mg PO DAILY [facility] Last Admin: 10/22/17 09:19 Dose: 150 mg Rosuvastatin Calcium (Crestor) 10 mg PO HS [facility] Last Admin: 10/21/17 21:48 Dose: 10 mg - Labs Labs: 10/22/17 07:09 10/22/17 07:09 PT 13.4 SECONDS (9.7-12.2) H 10/22/17 07:09 INR 1.2 10/22/17 07:09 APTT 28 SECONDS (21-34) 10/22/17 07:09
--- NOTE | 2017-10-22 10:49 | CP.PCM.PN ---
Subjective - Date & Time of Evaluation Date of Evaluation: 10/20/17 Time of Evaluation: 10:50 - Subjective Subjective: Patient is feeling well. No chest pain or shortness of breath. Currently awaiting for the wound culture. We will continue the IV antibiotic and will follow the patient Objective - Vital Signs/Intake and Output Vital Signs (last 24 hours): Temp Pulse Resp BP Pulse Ox 98.0 F 69 20 128/70 98 10/22/17 08:49 10/22/17 08:49 10/22/17 08:49 10/22/17 08:49 10/22/17 08:49 Intake and Output: 10/22/17 10/22/17 06:59 18:59 Intake Total 700 300 Output Total 650 Balance 50 300 - Medications Medications: Current Medications Acetaminophen (Tylenol 325mg Tab) 650 mg PO Q6 PRN PRN Reason: Fever >100.4 F Last Admin: 10/18/17 08:38 Dose: 650 mg Dextrose (Dextrose 50% Inj) 0 ml IV STAT PRN; Protocol PRN Reason: Hypoglycemia Protocol Dextrose (Glutose 15) 0 gm PO ONCE PRN; Protocol PRN Reason: Hypoglycemia Protocol Glucagon (Glucagen Diagnostic Kit) 0 mg IM STAT PRN; Protocol PRN Reason: Hypoglycemia Protocol Heparin Sodium (Porcine) (Heparin) 5,000 units SC Q12 [facility] Last Admin: 10/22/17 09:20 Dose: 5,000 units Clindamycin Phosphate 300 mg/ (Sodium Chloride) 52 mls @ 100 mls/hr IVPB Q6H [facility] PRN Reason: Protocol Last Admin: 10/22/17 09:13 Dose: 100 mls/hr Piperacillin Sod/Tazobactam Sod (Zosyn 3.375 Gm Iv Premix) 3.375 gm in 50 mls @ 100 mls/hr IVPB Q6H [facility] PRN Reason: Protocol Last Admin: 10/22/17 09:24 Dose: 100 mls/hr Vancomycin/Sodium Chloride (Vancomycin 1 Gm/Ns 200 Ml) 1 gm in 200 mls @ 133.333 mls/hr IVPB Q12H [facility] PRN Reason: Protocol Stop: 10/23/17 10:01 Last Admin: 10/22/17 04:51 Dose: 133.333 mls/hr Insulin Human Regular (Novolin R) 0 unit SC ACHS [facility] PRN Reason: Protocol Last Admin: 10/22/17 08:11 Dose: Not Given Montelukast Sodium (Singulair) 10 mg PO DAILY [facility] Last Admin: 10/22/17 09:19 Dose: 10 mg Ondansetron HCl (Zofran Inj) 4 mg IVP ONCE PRN PRN Reason: Nausea/Vomiting Pregabalin (Lyrica) 150 mg PO DAILY [facility] Last Admin: 10/22/17 09:19 Dose: 150 mg Rosuvastatin Calcium (Crestor) 10 mg PO HS [facility] Last Admin: 10/21/17 21:48 Dose: 10 mg - Labs Labs: 10/22/17 07:09 10/22/17 07:09 PT 13.4 SECONDS (9.7-12.2) H 10/22/17 07:09 INR 1.2 10/22/17 07:09 APTT 28 SECONDS (21-34) 10/22/17 07:09
--- NOTE | 2017-10-22 10:54 | CP.PCM.PN ---
Subjective - Date & Time of Evaluation Date of Evaluation: 10/22/17 Time of Evaluation: 10:54 - Subjective Subjective: Patient today feeling better. The culture showing evidence of MRSA. After reviewing the records, there is an evidence of aortic valve vegetation noted. So I recommended cardiology evaluation for possible HAILEE. After HAILEE we will plan for antibiotic duration and discharge plan Objective - Vital Signs/Intake and Output Vital Signs (last 24 hours): Temp Pulse Resp BP Pulse Ox 98.0 F 69 20 128/70 98 10/22/17 08:49 10/22/17 08:49 10/22/17 08:49 10/22/17 08:49 10/22/17 08:49 Intake and Output: 10/22/17 10/22/17 06:59 18:59 Intake Total 700 300 Output Total 650 Balance 50 300 - Medications Medications: Current Medications Acetaminophen (Tylenol 325mg Tab) 650 mg PO Q6 PRN PRN Reason: Fever >100.4 F Last Admin: 10/18/17 08:38 Dose: 650 mg Dextrose (Dextrose 50% Inj) 0 ml IV STAT PRN; Protocol PRN Reason: Hypoglycemia Protocol Dextrose (Glutose 15) 0 gm PO ONCE PRN; Protocol PRN Reason: Hypoglycemia Protocol Glucagon (Glucagen Diagnostic Kit) 0 mg IM STAT PRN; Protocol PRN Reason: Hypoglycemia Protocol Heparin Sodium (Porcine) (Heparin) 5,000 units SC Q12 [facility] Last Admin: 10/22/17 09:20 Dose: 5,000 units Clindamycin Phosphate 300 mg/ (Sodium Chloride) 52 mls @ 100 mls/hr IVPB Q6H [facility] PRN Reason: Protocol Last Admin: 10/22/17 09:13 Dose: 100 mls/hr Piperacillin Sod/Tazobactam Sod (Zosyn 3.375 Gm Iv Premix) 3.375 gm in 50 mls @ 100 mls/hr IVPB Q6H [facility] PRN Reason: Protocol Last Admin: 10/22/17 09:24 Dose: 100 mls/hr Vancomycin/Sodium Chloride (Vancomycin 1 Gm/Ns 200 Ml) 1 gm in 200 mls @ 133.333 mls/hr IVPB Q12H [facility] PRN Reason: Protocol Stop: 10/23/17 10:01 Last Admin: 10/22/17 04:51 Dose: 133.333 mls/hr Insulin Human Regular (Novolin R) 0 unit SC ACHS [place] PRN Reason: Protocol Last Admin: 10/22/17 08:11 Dose: Not Given Montelukast Sodium (Singulair) 10 mg PO DAILY [facility] Last Admin: 10/22/17 09:19 Dose: 10 mg Ondansetron HCl (Zofran Inj) 4 mg IVP ONCE PRN PRN Reason: Nausea/Vomiting Pregabalin (Lyrica) 150 mg PO DAILY [facility] Last Admin: 10/22/17 09:19 Dose: 150 mg Rosuvastatin Calcium (Crestor) 10 mg PO HS [facility] Last Admin: 10/21/17 21:48 Dose: 10 mg - Labs Labs: 10/22/17 07:09 10/22/17 07:09 PT 13.4 SECONDS (9.7-12.2) H 10/22/17 07:09 INR 1.2 10/22/17 07:09 APTT 28 SECONDS (21-34) 10/22/17 07:09
--- NOTE | 2017-10-22 12:25 | CP.PCM.PN ---
Subjective - Date & Time of Evaluation Date of Evaluation: 10/22/17 Time of Evaluation: 11:30 - Subjective Subjective: Patient seen and examined at bedside comfortable. Transferred to isolation room due to MRSA found in cultures. Stay extended due to HAILEE to evaluate aortic valve vegetation seen on echo. Offers no other complaints. Pain well controlled. Objective - Vital Signs/Intake and Output Vital Signs (last 24 hours): Temp Pulse Resp BP Pulse Ox 98.0 F 69 20 128/70 98 10/22/17 08:49 10/22/17 08:49 10/22/17 08:49 10/22/17 08:49 10/22/17 08:49 Intake and Output: 10/22/17 10/22/17 06:59 18:59 Intake Total 700 300 Output Total 650 Balance 50 300 - Medications Medications: Current Medications Acetaminophen (Tylenol 325mg Tab) 650 mg PO Q6 PRN PRN Reason: Fever >100.4 F Last Admin: 10/18/17 08:38 Dose: 650 mg Dextrose (Dextrose 50% Inj) 0 ml IV STAT PRN; Protocol PRN Reason: Hypoglycemia Protocol Dextrose (Glutose 15) 0 gm PO ONCE PRN; Protocol PRN Reason: Hypoglycemia Protocol Glucagon (Glucagen Diagnostic Kit) 0 mg IM STAT PRN; Protocol PRN Reason: Hypoglycemia Protocol Heparin Sodium (Porcine) (Heparin) 5,000 units SC Q12 [facility] Last Admin: 10/22/17 09:20 Dose: 5,000 units Clindamycin Phosphate 300 mg/ (Sodium Chloride) 52 mls @ 100 mls/hr IVPB Q6H [facility] PRN Reason: Protocol Last Admin: 10/22/17 09:13 Dose: 100 mls/hr Piperacillin Sod/Tazobactam Sod (Zosyn 3.375 Gm Iv Premix) 3.375 gm in 50 mls @ 100 mls/hr IVPB Q6H [facility] PRN Reason: Protocol Last Admin: 10/22/17 09:24 Dose: 100 mls/hr Vancomycin/Sodium Chloride (Vancomycin 1 Gm/Ns 200 Ml) 1 gm in 200 mls @ 133.333 mls/hr IVPB Q12H [facility] PRN Reason: Protocol Stop: 10/23/17 10:01 Last Admin: 10/22/17 04:51 Dose: 133.333 mls/hr Insulin Human Regular (Novolin R) 0 unit SC ACHS [facility] PRN Reason: Protocol Last Admin: 10/22/17 12:08 Dose: Not Given Montelukast Sodium (Singulair) 10 mg PO DAILY [facility] Last Admin: 10/22/17 09:19 Dose: 10 mg Ondansetron HCl (Zofran Inj) 4 mg IVP ONCE PRN PRN Reason: Nausea/Vomiting Pregabalin (Lyrica) 150 mg PO DAILY [facility] Last Admin: 10/22/17 09:19 Dose: 150 mg Rosuvastatin Calcium (Crestor) 10 mg PO HS [facility] Last Admin: 10/21/17 21:48 Dose: 10 mg - Labs Labs: 10/22/17 07:09 10/22/17 07:09 PT 13.4 SECONDS (9.7-12.2) H 10/22/17 07:09 INR 1.2 10/22/17 07:09 APTT 28 SECONDS (21-34) 10/22/17 07:09 - Extremities Exam Additional comments: R hand: Dressings intact with minimal dry serosanguinous drainage dorsally dressings removed revealing dorsal hand wound and 5th digit wound intact with sutures, no serosanguinous drainage sensation intact MN/UN/RN motor intact MN/UN/RN 2 sec cap refill all fingers Assessment and Plan (1) Abscess of right hand Assessment & Plan: POD #3 s/p R hand I&D -Wet to dry dressings changed,Will need to continue daily dressing changes until seen by Dr. Franco in office -abx as per ID -PT/OT, achieve full A/PROM -orthopedically stable -above d/w Dr. Franco in agreement Status: Acute
--- NOTE | 2017-10-22 18:52 | CP.PCM.PN ---
Subjective - Date & Time of Evaluation Date of Evaluation: 10/22/17 Time of Evaluation: 09:00 - Subjective Subjective: Transferred to isolation room due to MRSA found in cultures. Stay extended due to HAILEE to evaluate aortic valve vegetation seen on echo MRI neg for OM however persistent fluid collection noted Objective - Vital Signs/Intake and Output Vital Signs (last 24 hours): Temp Pulse Resp BP Pulse Ox 98.7 F 73 20 121/73 97 10/22/17 15:00 10/22/17 15:00 10/22/17 15:00 10/22/17 15:00 10/22/17 15:00 Intake and Output: 10/22/17 10/22/17 06:59 18:59 Intake Total 700 900 Output Total 650 300 Balance 50 600 - Medications Medications: Current Medications Acetaminophen (Tylenol 325mg Tab) 650 mg PO Q6 PRN PRN Reason: Fever >100.4 F Last Admin: 10/18/17 08:38 Dose: 650 mg Dextrose (Dextrose 50% Inj) 0 ml IV STAT PRN; Protocol PRN Reason: Hypoglycemia Protocol Dextrose (Glutose 15) 0 gm PO ONCE PRN; Protocol PRN Reason: Hypoglycemia Protocol Glucagon (Glucagen Diagnostic Kit) 0 mg IM STAT PRN; Protocol PRN Reason: Hypoglycemia Protocol Heparin Sodium (Porcine) (Heparin) 5,000 units SC Q12 [facility] Last Admin: 10/22/17 09:20 Dose: 5,000 units Clindamycin Phosphate 300 mg/ (Sodium Chloride) 52 mls @ 100 mls/hr IVPB Q6H [facility] PRN Reason: Protocol Last Admin: 10/22/17 14:46 Dose: 100 mls/hr Piperacillin Sod/Tazobactam Sod (Zosyn 3.375 Gm Iv Premix) 3.375 gm in 50 mls @ 100 mls/hr IVPB Q6H [facility] PRN Reason: Protocol Last Admin: 10/22/17 16:39 Dose: 100 mls/hr Vancomycin/Sodium Chloride (Vancomycin 1 Gm/Ns 200 Ml) 1 gm in 200 mls @ 133.333 mls/hr IVPB Q12H [facility] PRN Reason: Protocol Stop: 10/23/17 10:01 Last Admin: 10/22/17 17:20 Dose: 133.333 mls/hr Insulin Human Regular (Novolin R) 0 unit SC ACHS [facility] PRN Reason: Protocol Last Admin: 10/22/17 17:10 Dose: 1 units Montelukast Sodium (Singulair) 10 mg PO DAILY [facility] Last Admin: 10/22/17 09:19 Dose: 10 mg Ondansetron HCl (Zofran Inj) 4 mg IVP ONCE PRN PRN Reason: Nausea/Vomiting Pregabalin (Lyrica) 150 mg PO DAILY [facility] Last Admin: 10/22/17 09:19 Dose: 150 mg Rosuvastatin Calcium (Crestor) 10 mg PO HS [facility] Last Admin: 10/21/17 21:48 Dose: 10 mg - Labs Labs: 10/22/17 07:09 10/22/17 07:09 PT 13.4 SECONDS (9.7-12.2) H 10/22/17 07:09 INR 1.2 10/22/17 07:09 APTT 28 SECONDS (21-34) 10/22/17 07:09 - Constitutional Appears: Non-toxic, Chronically Ill - Head Exam Head Exam: NORMOCEPHALIC - Eye Exam Eye Exam: absent: Scleral icterus - ENT Exam ENT Exam: absent: Mucous Membranes Dry - Neck Exam Neck Exam: absent: Lymphadenopathy - Respiratory Exam Respiratory Exam: Decreased Breath Sounds - Cardiovascular Exam Cardiovascular Exam: REGULAR RHYTHM - GI/Abdominal Exam GI & Abdominal Exam: Distended - Rectal Exam Rectal Exam: Deferred Assessment and Plan (1) Cellulitis of hand Status: Acute - Assessment and Plan (Free Text) Assessment: cont iv rx and wound care await HAILEE
--- NOTE | 2017-10-22 22:53 | CP.PCM.PN ---
Subjective - Date & Time of Evaluation Date of Evaluation: 10/22/17 Time of Evaluation: 14:05 - Subjective Subjective: Patient seen and evaluated No cardiac events noted For HAILEE on Wednesday r/o Endocarditis Objective - Vital Signs/Intake and Output Vital Signs (last 24 hours): Temp Pulse Resp BP Pulse Ox 98.7 F 73 20 121/73 97 10/22/17 15:00 10/22/17 15:00 10/22/17 15:00 10/22/17 15:00 10/22/17 15:00 Intake and Output: 10/22/17 10/23/17 18:59 06:59 Intake Total 900 600 Output Total 300 450 Balance 600 150 - Medications Medications: Current Medications Acetaminophen (Tylenol 325mg Tab) 650 mg PO Q6 PRN PRN Reason: Fever >100.4 F Last Admin: 10/18/17 08:38 Dose: 650 mg Dextrose (Dextrose 50% Inj) 0 ml IV STAT PRN; Protocol PRN Reason: Hypoglycemia Protocol Dextrose (Glutose 15) 0 gm PO ONCE PRN; Protocol PRN Reason: Hypoglycemia Protocol Glucagon (Glucagen Diagnostic Kit) 0 mg IM STAT PRN; Protocol PRN Reason: Hypoglycemia Protocol Heparin Sodium (Porcine) (Heparin) 5,000 units SC Q12 [facility] Last Admin: 10/22/17 21:25 Dose: 5,000 units Clindamycin Phosphate 300 mg/ (Sodium Chloride) 52 mls @ 100 mls/hr IVPB Q6H [facility] PRN Reason: Protocol Last Admin: 10/22/17 19:52 Dose: 100 mls/hr Piperacillin Sod/Tazobactam Sod (Zosyn 3.375 Gm Iv Premix) 3.375 gm in 50 mls @ 100 mls/hr IVPB Q6H [facility] PRN Reason: Protocol Last Admin: 10/22/17 21:24 Dose: 100 mls/hr Vancomycin/Sodium Chloride (Vancomycin 1 Gm/Ns 200 Ml) 1 gm in 200 mls @ 133.333 mls/hr IVPB Q12H [facility] PRN Reason: Protocol Stop: 10/23/17 10:01 Last Admin: 10/22/17 17:20 Dose: 133.333 mls/hr Insulin Human Regular (Novolin R) 0 unit SC ACHS [facility] PRN Reason: Protocol Last Admin: 10/22/17 22:01 Dose: Not Given Montelukast Sodium (Singulair) 10 mg PO DAILY [facility] Last Admin: 10/22/17 09:19 Dose: 10 mg Ondansetron HCl (Zofran Inj) 4 mg IVP ONCE PRN PRN Reason: Nausea/Vomiting Pregabalin (Lyrica) 150 mg PO DAILY [facility] Last Admin: 10/22/17 09:19 Dose: 150 mg Rosuvastatin Calcium (Crestor) 10 mg PO [facility] Last Admin: 10/22/17 21:25 Dose: 10 mg - Labs Labs: 10/22/17 07:09 10/22/17 07:09 PT 13.4 SECONDS (9.7-12.2) H 10/22/17 07:09 INR 1.2 10/22/17 07:09 APTT 28 SECONDS (21-34) 10/22/17 07:09
[2017-10-23] MEDS: Clindamycin 300 MG in Sodium Chloride 0.9% 50 ML IVPB SCH ×4 (01:00→19:37)
[2017-10-23] MEDS: Piperacill/Tazo 3.375gm in Dex 3.375 GM/50 ML BAG IVPB SCH ×4 (02:45→20:57)
[2017-10-23 04:11] LABS: BASO # 0.2 K/uL (0.0-0.2); BASO % 1.3 % (0.0-2.0); EOS # 0.6 K/uL (0.0-0.7); EOS % 4.1 % (0.0-4.0); LYMPH # 3.5 K/uL (1.0-4.3); LYMPH % 24.9 % (20.0-40.0); MEAN CELL VOLUME 90.1 fL (80.0-94.0); MEAN CORPUSCULAR HEMOGLOBIN 30.9 pg (27.0-31.0); MEAN CORPUSCULAR HGB CONC 34.3 g/dL (33.0-37.0); MEAN PLATELET VOLUME 6.8 fL (7.2-11.7); MONO # 1.3 K/uL (0.0-0.8); MONO % 8.9 % (0.0-10.0); NEUT # 8.7 K/uL (1.8-7.0); NEUT % 60.8 % (50.0-75.0); NRBC % 0.1 % (0.0-2.0); RBC 4.21 Mil/uL (4.40-5.90); RED CELL DISTRIBUTION WIDTH 13.2 % (11.5-14.5); WHITE BLOOD COUNT 14.3 K/uL (4.8-10.8)
[2017-10-23 04:29] LABS: ALB/GLOB RATIO 1.1 (1.0-2.1); ALBUMIN 3.8 g/dL (3.5-5.0); ALT/SGPT 69 U/L (21-72); AST/SGOT 37 U/L (17-59); BLOOD UREA NITROGEN 9 mg/dL (9-20); CALCIUM 9.3 mg/dl (8.6-10.4); GFR NON-AFRICAN AMERICAN > 60
[2017-10-23] MEDS: Vancomycin 1 gm/NS 200 ml 1 GM/200 ML BAG IVPB SCH (04:50)
[2017-10-23] MEDS: (Novolin R) Insulin Human Regular 100 units/ml vial SC SCH ×4 (08:05→21:56)
--- NOTE | 2017-10-23 22:49 | CP.PCM.PN ---
Subjective - Date & Time of Evaluation Date of Evaluation: 10/23/17 Time of Evaluation: 08:15 - Subjective Subjective: Patient seen and evaluated Denies chest pain and dyspnea For HAILEE Wednesday r/o Endocarditis Objective - Vital Signs/Intake and Output Vital Signs (last 24 hours): Temp Pulse Resp BP Pulse Ox 98.0 F 64 20 130/76 98 10/23/17 17:12 10/23/17 15:30 10/23/17 15:30 10/23/17 15:30 10/23/17 15:30 Intake and Output: 10/23/17 10/24/17 18:59 06:59 Intake Total 900 800 Balance 900 800 - Medications Medications: Current Medications Acetaminophen (Tylenol 325mg Tab) 650 mg PO Q6 PRN PRN Reason: Fever >100.4 F Last Admin: 10/23/17 01:05 Dose: 650 mg Acetaminophen (Tylenol 325mg Tab) 650 mg PO Q6 PRN PRN Reason: Pain, moderate (4-7) Last Admin: 10/23/17 16:12 Dose: 650 mg Dextrose (Dextrose 50% Inj) 0 ml IV STAT PRN; Protocol PRN Reason: Hypoglycemia Protocol Dextrose (Glutose 15) 0 gm PO ONCE PRN; Protocol PRN Reason: Hypoglycemia Protocol Glucagon (Glucagen Diagnostic Kit) 0 mg IM STAT PRN; Protocol PRN Reason: Hypoglycemia Protocol Heparin Sodium (Porcine) (Heparin) 5,000 units SC Q12 [facility] Last Admin: 10/23/17 21:57 Dose: 5,000 units Clindamycin Phosphate 300 mg/ (Sodium Chloride) 52 mls @ 100 mls/hr IVPB Q6H [facility] PRN Reason: Protocol Last Admin: 10/23/17 19:37 Dose: 100 mls/hr Piperacillin Sod/Tazobactam Sod (Zosyn 3.375 Gm Iv Premix) 3.375 gm in 50 mls @ 100 mls/hr IVPB Q6H [facility] PRN Reason: Protocol Last Admin: 10/23/17 20:57 Dose: 100 mls/hr Insulin Human Regular (Novolin R) 0 unit SC ACHS [facility] PRN Reason: Protocol Last Admin: 10/23/17 21:56 Dose: Not Given Montelukast Sodium (Singulair) 10 mg PO DAILY [facility] Last Admin: 10/23/17 10:19 Dose: 10 mg Ondansetron HCl (Zofran Inj) 4 mg IVP ONCE PRN PRN Reason: Nausea/Vomiting Pregabalin (Lyrica) 150 mg PO DAILY [facility] Last Admin: 10/23/17 10:25 Dose: 150 mg Rosuvastatin Calcium (Crestor) 10 mg PO HS [facility] Last Admin: 10/23/17 21:57 Dose: 10 mg - Labs Labs: 10/23/17 04:05 10/23/17 04:05 PT 13.4 SECONDS (9.7-12.2) H 10/22/17 07:09 INR 1.2 10/22/17 07:09 APTT 28 SECONDS (21-34) 10/22/17 07:09
[2017-10-24] MEDS: Clindamycin 300 MG in Sodium Chloride 0.9% 50 ML IVPB SCH ×4 (01:45→19:29)
[2017-10-24] MEDS: Piperacill/Tazo 3.375gm in Dex 3.375 GM/50 ML BAG IVPB SCH ×4 (02:15→20:46)
[2017-10-24] MEDS: (Novolin R) Insulin Human Regular 100 units/ml vial SC SCH ×4 (08:20→21:43)
[2017-10-24 09:16] LABS: BASO # 0.1 K/uL (0.0-0.2); BASO % 0.6 % (0.0-2.0); EOS # 0.4 K/uL (0.0-0.7); EOS % 3.4 % (0.0-4.0); HEMOGLOBIN 13.1 g/dL (12.0-18.0); LYMPH % 24.4 % (20.0-40.0); MEAN CELL VOLUME 91.2 fL (80.0-94.0); MEAN CORPUSCULAR HEMOGLOBIN 30.9 pg (27.0-31.0); MEAN CORPUSCULAR HGB CONC 33.8 g/dL (33.0-37.0); MEAN PLATELET VOLUME 6.9 fL (7.2-11.7); MONO # 0.9 K/uL (0.0-0.8); MONO % 7.3 % (0.0-10.0); NEUT % 64.3 % (50.0-75.0); RBC 4.26 Mil/uL (4.40-5.90); RED CELL DISTRIBUTION WIDTH 13.3 % (11.5-14.5); WHITE BLOOD COUNT 12.4 K/uL (4.8-10.8)
--- NOTE | 2017-10-24 14:08 | CP.PCM.PN ---
Subjective - Date & Time of Evaluation Date of Evaluation: 10/24/17 Time of Evaluation: 14:08 Objective - Vital Signs/Intake and Output Vital Signs (last 24 hours): Temp Pulse Resp BP Pulse Ox 97.9 F 82 20 128/78 98 10/24/17 08:06 10/24/17 08:06 10/24/17 08:06 10/24/17 08:06 10/24/17 00:00 Intake and Output: 10/24/17 10/24/17 06:59 18:59 Intake Total 1200 Balance 1200 - Medications Medications: Current Medications Acetaminophen (Tylenol 325mg Tab) 650 mg PO Q6 PRN PRN Reason: Fever >100.4 F Last Admin: 10/23/17 01:05 Dose: 650 mg Acetaminophen (Tylenol 325mg Tab) 650 mg PO Q6 PRN PRN Reason: Pain, moderate (4-7) Last Admin: 10/23/17 16:12 Dose: 650 mg Dextrose (Dextrose 50% Inj) 0 ml IV STAT PRN; Protocol PRN Reason: Hypoglycemia Protocol Dextrose (Glutose 15) 0 gm PO ONCE PRN; Protocol PRN Reason: Hypoglycemia Protocol Glucagon (Glucagen Diagnostic Kit) 0 mg IM STAT PRN; Protocol PRN Reason: Hypoglycemia Protocol Clindamycin Phosphate 300 mg/ (Sodium Chloride) 52 mls @ 100 mls/hr IVPB Q6H [facility] PRN Reason: Protocol Last Admin: 10/24/17 13:41 Dose: 100 mls/hr Piperacillin Sod/Tazobactam Sod (Zosyn 3.375 Gm Iv Premix) 3.375 gm in 50 mls @ 100 mls/hr IVPB Q6H [facility] PRN Reason: Protocol Last Admin: 10/24/17 10:00 Dose: 100 mls/hr Insulin Human Regular (Novolin R) 0 unit SC ACHS [facility] PRN Reason: Protocol Last Admin: 10/24/17 12:23 Dose: 2 units Montelukast Sodium (Singulair) 10 mg PO DAILY [facility] Last Admin: 10/24/17 10:05 Dose: 10 mg Ondansetron HCl (Zofran Inj) 4 mg IVP ONCE PRN PRN Reason: Nausea/Vomiting Pregabalin (Lyrica) 150 mg PO DAILY [facility] Last Admin: 10/24/17 10:05 Dose: 150 mg Rosuvastatin Calcium (Crestor) 10 mg PO HS [facility] Last Admin: 10/23/17 21:57 Dose: 10 mg - Labs Labs: 10/24/17 09:02 10/23/17 04:05 PT 13.4 SECONDS (9.7-12.2) H 10/22/17 07:09 INR 1.2 10/22/17 07:09 APTT 28 SECONDS (21-34) 10/22/17 07:09
--- NOTE | 2017-10-24 15:50 | CP.PCM.PN ---
Subjective - Date & Time of Evaluation Date of Evaluation: 10/24/17 Time of Evaluation: 08:00 - Subjective Subjective: no fever less pain and swelling for HAILEE Objective - Vital Signs/Intake and Output Vital Signs (last 24 hours): Temp Pulse Resp BP Pulse Ox 97.9 F 82 20 128/78 98 10/24/17 08:06 10/24/17 08:06 10/24/17 08:06 10/24/17 08:06 10/24/17 00:00 Intake and Output: 10/24/17 10/24/17 06:59 18:59 Intake Total 1200 Balance 1200 - Medications Medications: Current Medications Acetaminophen (Tylenol 325mg Tab) 650 mg PO Q6 PRN PRN Reason: Fever >100.4 F Last Admin: 10/23/17 01:05 Dose: 650 mg Acetaminophen (Tylenol 325mg Tab) 650 mg PO Q6 PRN PRN Reason: Pain, moderate (4-7) Last Admin: 10/23/17 16:12 Dose: 650 mg Dextrose (Dextrose 50% Inj) 0 ml IV STAT PRN; Protocol PRN Reason: Hypoglycemia Protocol Dextrose (Glutose 15) 0 gm PO ONCE PRN; Protocol PRN Reason: Hypoglycemia Protocol Glucagon (Glucagen Diagnostic Kit) 0 mg IM STAT PRN; Protocol PRN Reason: Hypoglycemia Protocol Clindamycin Phosphate 300 mg/ (Sodium Chloride) 52 mls @ 100 mls/hr IVPB Q6H [facility] PRN Reason: Protocol Last Admin: 10/24/17 13:41 Dose: 100 mls/hr Piperacillin Sod/Tazobactam Sod (Zosyn 3.375 Gm Iv Premix) 3.375 gm in 50 mls @ 100 mls/hr IVPB Q6H [facility] PRN Reason: Protocol Last Admin: 10/24/17 15:06 Dose: 100 mls/hr Insulin Human Regular (Novolin R) 0 unit SC ACHS [facility] PRN Reason: Protocol Last Admin: 10/24/17 12:23 Dose: 2 units Montelukast Sodium (Singulair) 10 mg PO DAILY [facility] Last Admin: 10/24/17 10:05 Dose: 10 mg Ondansetron HCl (Zofran Inj) 4 mg IVP ONCE PRN PRN Reason: Nausea/Vomiting Pregabalin (Lyrica) 150 mg PO DAILY [facility] Last Admin: 10/24/17 10:05 Dose: 150 mg Rosuvastatin Calcium (Crestor) 10 mg PO HS [facility] Last Admin: 10/23/17 21:57 Dose: 10 mg - Labs Labs: 10/24/17 09:02 10/23/17 04:05 PT 13.4 SECONDS (9.7-12.2) H 10/22/17 07:09 INR 1.2 10/22/17 07:09 APTT 28 SECONDS (21-34) 10/22/17 07:09 - Constitutional Appears: Non-toxic, Chronically Ill - Head Exam Head Exam: NORMOCEPHALIC - Eye Exam Eye Exam: PERRL - ENT Exam ENT Exam: Mucous Membranes Dry - Neck Exam Neck Exam: absent: Lymphadenopathy - Respiratory Exam Respiratory Exam: Decreased Breath Sounds - Cardiovascular Exam Cardiovascular Exam: REGULAR RHYTHM - GI/Abdominal Exam GI & Abdominal Exam: Distended, Soft - Rectal Exam Rectal Exam: Deferred - Exam Exam: NORMAL INSPECTION - Extremities Exam Extremities Exam: absent: Pedal Edema - Back Exam Back Exam: absent: CVA tenderness (L), CVA tenderness (R) Assessment and Plan (1) Cellulitis of hand Status: Acute - Assessment and Plan (Free Text) Assessment: await HAILEE wbc trending down cont IV rx and wound care surgical follow up
--- NOTE | 2017-10-24 19:48 | CP.PCM.PN ---
Subjective - Date & Time of Evaluation Date of Evaluation: 10/24/17 Time of Evaluation: 18:15 - Subjective Subjective: Patient seen and evaluated Cellulits and bacteremia For HAILEE tomorrow at 12noon NPO after MN except meds Objective - Vital Signs/Intake and Output Vital Signs (last 24 hours): Temp Pulse Resp BP Pulse Ox 986 F H 70 20 120/70 97 10/24/17 17:41 10/24/17 17:41 10/24/17 17:41 10/24/17 17:41 10/24/17 17:41 - Medications Medications: Current Medications Acetaminophen (Tylenol 325mg Tab) 650 mg PO Q6 PRN PRN Reason: Fever >100.4 F Last Admin: 10/23/17 01:05 Dose: 650 mg Acetaminophen (Tylenol 325mg Tab) 650 mg PO Q6 PRN PRN Reason: Pain, moderate (4-7) Last Admin: 10/23/17 16:12 Dose: 650 mg Dextrose (Dextrose 50% Inj) 0 ml IV STAT PRN; Protocol PRN Reason: Hypoglycemia Protocol Dextrose (Glutose 15) 0 gm PO ONCE PRN; Protocol PRN Reason: Hypoglycemia Protocol Glucagon (Glucagen Diagnostic Kit) 0 mg IM STAT PRN; Protocol PRN Reason: Hypoglycemia Protocol Clindamycin Phosphate 300 mg/ (Sodium Chloride) 52 mls @ 100 mls/hr IVPB Q6H [facility] PRN Reason: Protocol Last Admin: 10/24/17 19:29 Dose: 100 mls/hr Piperacillin Sod/Tazobactam Sod (Zosyn 3.375 Gm Iv Premix) 3.375 gm in 50 mls @ 100 mls/hr IVPB Q6H [facility] PRN Reason: Protocol Last Admin: 10/24/17 15:06 Dose: 100 mls/hr Insulin Human Regular (Novolin R) 0 unit SC ACHS [facility] PRN Reason: Protocol Last Admin: 10/24/17 17:07 Dose: 1 units Montelukast Sodium (Singulair) 10 mg PO DAILY [facility] Last Admin: 10/24/17 10:05 Dose: 10 mg Ondansetron HCl (Zofran Inj) 4 mg IVP ONCE PRN PRN Reason: Nausea/Vomiting Pregabalin (Lyrica) 150 mg PO DAILY [facility] Last Admin: 10/24/17 10:05 Dose: 150 mg Rosuvastatin Calcium (Crestor) 10 mg PO HS [facility] Last Admin: 10/23/17 21:57 Dose: 10 mg - Labs Labs: 10/24/17 09:02 10/23/17 04:05 PT 13.4 SECONDS (9.7-12.2) H 10/22/17 07:09 INR 1.2 10/22/17 07:09 APTT 28 SECONDS (21-34) 10/22/17 07:09
[2017-10-25] MEDS: Clindamycin 300 MG in Sodium Chloride 0.9% 50 ML IVPB SCH ×2 (01:23→08:44)
[2017-10-25 01:35] VITALS: O2SAT 98
[2017-10-25] MEDS: Piperacill/Tazo 3.375gm in Dex 3.375 GM/50 ML BAG IVPB SCH ×3 (02:06→14:14)
[2017-10-25 07:28] LABS: HEMOGLOBIN 13.2 g/dL (12.0-18.0); MEAN CELL VOLUME 90.8 fL (80.0-94.0); MEAN CORPUSCULAR HEMOGLOBIN 31.1 pg (27.0-31.0); MEAN CORPUSCULAR HGB CONC 34.3 g/dL (33.0-37.0); MEAN PLATELET VOLUME 6.8 fL (7.2-11.7); RBC 4.26 Mil/uL (4.40-5.90); RED CELL DISTRIBUTION WIDTH 13.4 % (11.5-14.5); WHITE BLOOD COUNT 11.2 K/uL (4.8-10.8)
[2017-10-25] MEDS: (Novolin R) Insulin Human Regular 100 units/ml vial SC SCH ×2 (07:35→11:54)
[2017-10-25 07:45] LABS: BLOOD UREA NITROGEN 8 mg/dL (9-20); CALCIUM 9.4 mg/dl (8.6-10.4); GFR NON-AFRICAN AMERICAN > 60
[2017-10-25 07:55] LABS: INR 1.2; PROTHROMBIN TIME 12.7 SECONDS (9.7-12.2)
[2017-10-25 08:00] VITALS: BP 140/79; PULSE 73; TEMP 98.1
[2017-10-25] MEDS ORDERED: Propofol 10 mg/ml Inj (20 ML) ONE (12:04)
[2017-10-25] MEDS ORDERED: Midazolam 2 MG/2 ML VIAL ONE (12:05)
[2017-10-25] MEDS ORDERED: Phenylephrine 10 mg/ml Inj ONE (12:07)
[2017-10-25] MEDS ORDERED: Lidocaine 4% (Laryng-O-Jet) Kit MM ONE ×2 (12:11→12:12)
--- NOTE | 2017-10-25 15:06 | CP.PCM.PN ---
Subjective - Date & Time of Evaluation Date of Evaluation: 10/25/17 Time of Evaluation: 15:00 - Subjective Subjective: Patient seen today, denies any complaints s/p HAILEE today- negative vss- stable a febrile labs reviewed- wbc- trending down - 11.2-<12.4<14.3 Objective - Vital Signs/Intake and Output Vital Signs (last 24 hours): Temp Pulse Resp BP Pulse Ox 98.1 F 73 20 140/79 98 10/25/17 07:57 10/25/17 07:57 10/25/17 07:57 10/25/17 07:57 10/25/17 07:57 Intake and Output: 10/25/17 10/25/17 06:59 18:59 Intake Total 400 Balance 400 - Medications Medications: Current Medications Acetaminophen (Tylenol 325mg Tab) 650 mg PO Q6 PRN PRN Reason: Fever >100.4 F Last Admin: 10/23/17 01:05 Dose: 650 mg Acetaminophen (Tylenol 325mg Tab) 650 mg PO Q6 PRN PRN Reason: Pain, moderate (4-7) Last Admin: 10/24/17 21:23 Dose: 650 mg Dextrose (Dextrose 50% Inj) 0 ml IV STAT PRN; Protocol PRN Reason: Hypoglycemia Protocol Dextrose (Glutose 15) 0 gm PO ONCE PRN; Protocol PRN Reason: Hypoglycemia Protocol Glucagon (Glucagen Diagnostic Kit) 0 mg IM STAT PRN; Protocol PRN Reason: Hypoglycemia Protocol Piperacillin Sod/Tazobactam Sod (Zosyn 3.375 Gm Iv Premix) 3.375 gm in 50 mls @ 100 mls/hr IVPB Q6H [facility] PRN Reason: Protocol Last Admin: 10/25/17 14:14 Dose: 100 mls/hr Insulin Human Regular (Novolin R) 0 unit SC ACHS [facility] PRN Reason: Protocol Last Admin: 10/25/17 11:54 Dose: Not Given Montelukast Sodium (Singulair) 10 mg PO DAILY [facility] Last Admin: 10/25/17 09:30 Dose: Not Given Ondansetron HCl (Zofran Inj) 4 mg IVP ONCE PRN PRN Reason: Nausea/Vomiting Pregabalin (Lyrica) 150 mg PO DAILY [facility] Last Admin: 10/25/17 09:30 Dose: Not Given Rosuvastatin Calcium (Crestor) 10 mg PO HS [facility] Last Admin: 10/24/17 21:24 Dose: 10 mg - Labs Labs: 10/25/17 06:48 10/25/17 06:48 PT 12.7 SECONDS (9.7-12.2) H 10/25/17 06:48 INR 1.2 10/25/17 06:48 APTT 28 SECONDS (21-34) 10/22/17 07:09 Assessment and Plan - Assessment and Plan (Free Text) Assessment: A/P 66 y/o old male with PMH of NIDDM, HTN, hypercholesterolemia, asthma admitted with R hand abscess s/p I&D, wound improved with IV antibiotics and daily dressing changes ortho cleared for discharge and f/u with Dr. Isbell office and continue daily dressing changes s/p HAILEE today- negative as per Dr. Salas D/W Dr. Ortez [id number] for discharge from ID standpoint and continue zyvox for 7 days D/W Dr. Kenny, cleared for discharge home today and f/u with his office in 1 week Discharge plan discussed with patient , who understands and agrees with plan Patient instructed to returns to ED or call Dr. Kenny if he develops any fever chills, redness or incr. drainage to the R hand
--- NOTE | 2017-10-25 20:51 | CARD ---
APPROVED REPORT Date of service: 10/25/2017 EXAM: Transesophageal echocardiogram with color flow Doppler. INDICATION Infection : Rule out subacute bacterial endocarditis Reason For Test : Rule out endocarditis. PROCEDURE After obtaining informed consent, patient underwent transesophageal echo in the Echo Lab. Type of Sedation : Sedation was provided by anesthesiologist. Sedation was achieved with intravenously. Transesophageal probe was inserted and advanced into esophagus without difficulty. The HAILEE was performed without complications. Throughout the procedure, the blood pressure, pulse oximetry, cardiac rhythm, and rate were monitored. The patient tolerated the procedure without adverse effects. Recovery from conscious sedation was uneventful and vital signs were stable. LEFT VENTRICLE The left ventricle is normal size. There is normal left ventricular wall thickness. The left ventricular function is normal. The left ventricular ejection fraction is within the normal range. There is normal LV segmental wall motion. No left ventricle thrombus noted on this study. There is no left ventricular aneurysm. RIGHT VENTRICLE The right ventricle is normal size. There is normal right ventricular wall thickness. The right ventricular systolic function is normal. ATRIA The left atrium size is normal. The right atrium size is normal. AORTIC VALVE The aortic valve is mildly thickened. No aortic regurgitation is present. There is no aortic valvular stenosis. MITRAL VALVE The mitral valve is normal in structure. There is no evidence of mitral valve prolapse. There is no mitral valve stenosis. Mitral regurgitation is trace to mild. TRICUSPID VALVE The tricuspid valve is normal in structure. There is no tricuspid valve regurgitation noted. There is no tricuspid valve stenosis. PULMONIC VALVE The pulmonary valve is normal in structure. There is no pulmonic valvular regurgitation. GREAT VESSELS The aortic root is normal in size. PERICARDIAL EFFUSION There is no pericardial effusion. <Conclusion> No vegitation seen
== END 2017-10-25 17:28 | disposition home or self-care (01) | DRG 580 ==
LOC: C.ER 16:21 → C.3T 17:58 → OBSVTOIN 10-19 20:42 → C.3T 10-21 15:34
PROVIDERS: ADMIT Internal Medicine; ATTEND Internal Medicine
PROC: 0J9J0ZZ Drainage of Right Hand Subcutaneous Tissue and Fascia, Open Approach (ICD-10-PCS; principal; 2017-10-19 11:00)
PROC: B246ZZ4 Ultrasonography of Right and Left Heart, Transesophageal (ICD-10-PCS; 2017-10-25)
DX: L03.113 Cellulitis of right upper limb (principal); R78.81 Bacteremia; L02.511 Cutaneous abscess of right hand; B95.62 Methicillin resistant Staphylococcus aureus infection as the cause of diseases classified elsewhere; I10 Essential (primary) hypertension; E11.9 Type 2 diabetes mellitus without complications; R93.1 Abnormal findings on diagnostic imaging of heart and coronary circulation; L30.9 Dermatitis, unspecified; K21.9 Gastro-esophageal reflux disease without esophagitis; J45.909 Unspecified asthma, uncomplicated; E78.00 Pure hypercholesterolemia, unspecified; M51.17 Intervertebral disc disorders with radiculopathy, lumbosacral region; Z86.010 Personal history of colon polyps

== ENCOUNTER 2018-03-17 05:13 | Day surgery (SDC) | payer OTHER ==
[2018-03-17] MEDS ORDERED: Propofol 10 mg/ml Inj (20 ML) ONE (07:59)
[2018-03-17] MEDS ORDERED: Lactated Ringer's 500 ML IV SCH (08:30)
[2018-03-17 08:31] VITALS: RESP 12
[2018-03-17 09:59] VITALS: BP 105/59; PULSE 64; TEMP 97.2; O2SAT 100
== END 2018-03-17 09:15 | disposition home or self-care (01) ==
LOC: C.ENDO 05:13
PROVIDERS: ATTEND Internal Medicine Gastroenterology
DX: Z12.11 Encounter for screening for malignant neoplasm of colon (principal); D12.2 Benign neoplasm of ascending colon; D12.3 Benign neoplasm of transverse colon; K64.1 Second degree hemorrhoids; I10 Essential (primary) hypertension; E11.9 Type 2 diabetes mellitus without complications; J45.909 Unspecified asthma, uncomplicated; E78.5 Hyperlipidemia, unspecified; Z98.890 Other specified postprocedural states; Z79.84 Long term (current) use of oral hypoglycemic drugs; Z79.899 Other long term (current) drug therapy
CPT/HCPCS: 45380; 45385; 82948; 88305; J2704; J3010; J7120

== ENCOUNTER 2018-05-05 13:21 | Outpatient (CLI) | payer OTHER | END 2018-05-05 13:22 | disposition home or self-care (01) | LOC: C.LAB 13:21 | DX: J45.21 Mild intermittent asthma with (acute) exacerbation (principal); E11.9 Type 2 diabetes mellitus without complications ==